=== PATIENT | female | born 1995 | race Caucasian/White ===

== ENCOUNTER 2016-12-01 17:18 | Observation (INO) | payer OTHER ==
[~2016-12-01] VITALS: Ht 152.4 cm; Wt 52.0 kg
[2016-12-01] MEDS ORDERED: LACTATED RINGER'S 1000ML 500 ML IV ONE (17:27)
[2016-12-01] MEDS ORDERED: LACTATED RINGER'S 1000ML 1,000 ML IV SCH (17:27)
[2016-12-01] MEDS ORDERED: ONDANSETRON INJ 2 MG/ML 2 ML VIAL IV PRN (17:30)
[2016-12-01] MEDS ORDERED: ACETAMINOPHEN 325 MG TAB PO PRN (17:30)
[2016-12-01] MEDS ORDERED: ONDANSETRON 4 MG TAB PO PRN (17:30)
[2016-12-01 18:20] LABS: BASO % 0.2 %; BASO ABS # 0.02 K/uL (0-0.2); COMPLETE YES; EOS % 1.8 %; HEMATOCRIT 31.1 % (37-47); IG% 0.5 %; LYMPH ABS # 1.63 K/uL (1.2-3.4); MEAN CELL VOLUME 93.1 fL (80-100); MEAN CORPUSCULAR HGB CONC 34.4 g/dl (32-36); MEAN PLATELET VOLUME 11.1 fL (7.4-10.4); MONO % 8.8 %; NEUT % 73.7 %; PLATELET COUNT 279 K/uL (130-400); RED BLOOD COUNT 3.34 M/uL (4.2-5.4); WHITE BLOOD COUNT 10.85 K/uL (4.8-10.8)
[2016-12-01 18:29] VITALS: Ht 152.4 cm; Wt 52.0 kg
[2016-12-01] MEDS ORDERED: PRENTAB26 PO (18:33)
[2016-12-01 18:41] LABS: URINE APPEARANCE CLEAR (CLEAR); URINE BILIRUBIN NEG (NEG); URINE COLOR YELLOW; URINE EPITHELIAL CELL AUTO >30 /lpf (0-5); URINE NITRITE NEG (NEG); URINE PH >= 9.0 (4.5-7.5); URINE SPECIFIC GRAVITY 1.015 (1.000-1.030); UROBILINOGEN NEG (NEG); ZZUR CULT IF INDIC CLEAN CATCH YES
[2016-12-01 18:43] LABS: ALT/SGPT 13 U/L (12-78); AST/SGOT 12 U/L (15-37); BLOOD UREA NITROGEN 6 mg/dl (7-18); BUN/CREATININE RATIO 12.3 (10-20); CALCIUM 8.3 mg/dl (8.5-10.1); CARBON DIOXIDE 24 mmol/L (21-32); CHLORIDE 110 mmol/L (98-107); CREATININE 0.49 mg/dl (0.60-1.20); GLUCOSE 67 mg/dl (70-99); POTASSIUM 3.9 mmol/L (3.5-5.1); SODIUM 138 mmol/L (136-145)
[2016-12-01 18:45] LABS: ALB/GLOB RATIO 0.7 (0.9-2); ALKALINE PHOSPHATASE 73 U/L (45-117)
[2016-12-01 18:45] LABS: MANUAL MICROSCOPIC REQUIRED? NO; REVIEW REQ? YES
[2016-12-01 18:46] LABS: SULFASALICYLIC ACID POS (NEG)
[2016-12-01] MEDS ORDERED: TERBUTALINE SULFATE 1 MG/ML VIAL SQ ONE (19:30)
[2016-12-01] MEDS ORDERED: TERBUTALINE SULFATE 1 MG/ML VIAL ONE (19:31)
--- NOTE | 2016-12-01 21:09 | Discharge Instructions ---
Discharge Instructions Date of Service Dec 01, 2016. Admission Reason for Admission: R/O Pre Term Labor Discharge Discharge Diagnosis / Problem: Dehydration Discharge Goals Goal(s): Continuing OB care Activity Recommendations Activity Limitations: as noted below ACTIVITY RECOMMENDATIONS: See Labor Sheet. SPECIAL CARE INSTRUCTIONS: Call Doctor if: * Regular contractions every 5 minutes or greater than 4 contractions in one hour. * Bleeding * Water breaks or is leaking * Decreased movement * Fever >100.4 degrees F * Pain not relieved by routine measures or pain medication ordered. FOLLOW UP VISIT: Return to Labor and Delivery on for /call for appointment time . Follow-up Visit with: When: . Current Hospital Diet Patient's current hospital diet: Discharge Diet Recommended Diet: Regular Diet Pending Studies Studies pending at discharge: yes (Urine cx) List of pending studies: urine culture Work Instructions Return To Work: 1 day (off today 12/01/16) Medical Emergencies . Who to Call and When: Medical Emergencies: If at any time you feel your situation is an emergency, please call 911 immediately. . Non-Emergent Contact Non-Emergency issues call your: Surgeon Call Non-Emergent contact if: temperature is above 100.5, your pain is not controlled, your pain is worsening . . "Provider Documentation" section prepared by Alex Rossi. . VTE Core Measure Inpt VTE Proph given/why not?: Treatment not indicated
== END 2016-12-01 21:24 | disposition home or self-care (01) ==
LOC: C.OPB 17:18 → C.LD 17:19 → C.OPB 21:22 → C.LD 21:24
PROVIDERS: ADMIT Obstetrics & Gynecology; ATTEND Obstetrics & Gynecology
DX: O99.342 Other mental disorders complicating pregnancy, second trimester (principal); E86.0 Dehydration; O26.892 Other specified pregnancy related conditions, second trimester; O98.512 Other viral diseases complicating pregnancy, second trimester; B00.9 Herpesviral infection, unspecified; F41.1 Generalized anxiety disorder; O99.89 Other specified diseases and conditions complicating pregnancy, childbirth and the puerperium; I73.00 Raynaud's syndrome without gangrene; Z3A.27 27 weeks gestation of pregnancy

== ENCOUNTER 2017-01-22 16:30 | Outpatient (CLI) | payer OTHER ==
[~2017-01-22 16:30] MED LIST: PRENTAB26 PO
[2017-01-22] MEDS ORDERED: ONDA4TAB65 PO (18:13)
--- NOTE | 2017-01-22 18:14 | Discharge Instructions ---
Discharge Instructions Date of Service Jan 22, 2017. Admission Reason for Admission: Pre Term Labor Check Discharge Discharge Diagnosis / Problem: SAME Discharge Goals Goal(s): Continuing OB care Activity Recommendations Activity Limitations: as noted below ACTIVITY RECOMMENDATIONS: See Labor Sheet. SPECIAL CARE INSTRUCTIONS: Call Doctor if: * Regular contractions every 5 minutes or greater than contractions in one hour. * Bleeding * Water breaks or is leaking * Decreased movement * Fever >100.4 degrees F * Pain not relieved by routine measures or pain medication ordered. FOLLOW UP VISIT: Return to Labor and Delivery on for /call for appointment time . Follow-up Visit with: When: . Current Hospital Diet Patient's current hospital diet: Discharge Diet Recommended Diet: Regular Diet Pending Studies Studies pending at discharge: no Medical Emergencies . Who to Call and When: Medical Emergencies: If at any time you feel your situation is an emergency, please call 911 immediately. . Non-Emergent Contact Non-Emergency issues call your: Specialist . . "Provider Documentation" section prepared by Jd Young. . VTE Core Measure Inpt VTE Proph given/why not?: SCD's
--- NOTE | 2017-01-22 18:37 | Progress Note ---
Progress Note Date of Service Jan 22, 2017. Progress Note Pt sent from office for PTL Pt was seen in office today for RPNC She had Placed on monitor in the office and was found to be having ctx . VE in office was closed she was sento L&d for eval. On arrival to L&D, she has minimal ctx, Ve ; unchanged, CAT 1 strip. Pulse is ni the 100's and si attributed to her anemia she denies any palpitations, fatigue or SOB Pt not taking her iron tabs because of Nausea Rx fr Zofran given and pt encouraged to take her iron tabs d/c home with instructions
== END 2017-01-22 18:35 | disposition home or self-care (01) ==
LOC: C.OPB 16:30 → C.LD 16:31 → C.OPB 18:35
PROVIDERS: ATTEND Obstetrics & Gynecology
DX: Z34.00 Encounter for supervision of normal first pregnancy, unspecified trimester (principal)

== ENCOUNTER 2017-01-26 17:50 | Outpatient (CLI) | payer OTHER ==
[~2017-01-26] VITALS: Ht 152.4 cm; Wt 56.7 kg
[~2017-01-26 17:50] MED LIST changes: +ONDA4TAB65 PO
[2017-01-26] MEDS ORDERED: LACTATED RINGER'S 1000ML 1,000 ML IV SCH ×2 (18:38→21:20)
[2017-01-26] MEDS ORDERED: LACTATED RINGER'S 1000ML 500 ML IV ONE (18:38)
[2017-01-26 18:52] LABS: URINE APPEARANCE CLEAR (CLEAR); URINE BILIRUBIN NEG (NEG); URINE COLOR YELLOW; URINE EPITHELIAL CELL AUTO >30 /lpf (0-5); URINE NITRITE NEG (NEG); URINE PH 6.5 (4.5-7.5); URINE SPECIFIC GRAVITY 1.013 (1.000-1.030); UROBILINOGEN NEG (NEG); ZZUR CULT IF INDIC CLEAN CATCH YES
--- NOTE | 2017-01-26 18:54 | Progress Note ---
Progress Note Date of Service Jan 26, 2017. Progress Note 21 F P0000 at 35 weeks admitted with abdominal cramping and diarrhea x3 today. Was here on Sunday with uterine cramping and not dilated at that time. Abdomen is soft and non-tender. Patient appears pale. History of anemia. Denies SOB, dyspnea or syncope. Cervix is long, closed and thick with vertex high. Will get CBC, UA and start IV fluid bolus. FHT Cat 1
[2017-01-26 19:03] LABS: MANUAL MICROSCOPIC REQUIRED? NO; REVIEW REQ? YES
[2017-01-26 19:24] LABS: MEAN CELL VOLUME 88.2 fL (80-100); MEAN CORPUSCULAR HEMOGLOBIN 28.2 pg (25-34); MEAN PLATELET VOLUME 11.7 fL (7.4-10.4); PLATELET COUNT 319 K/uL (130-400); WHITE BLOOD COUNT 14.55 K/uL (4.8-10.8)
[2017-01-26 19:42] LABS: COMPLETE YES; EOSINOPHIL % 1.7 %; LYMPH ABS # 2.02 K/uL (1.2-3.4); LYMPHOCYTE % 13.9 %; MYELOCYTE % 0.9 %; NEUTROPHILS % 79.2 %
[2017-01-26] MEDS ORDERED: LACTATED RINGER'S 1000ML 1,000 ML IV ONE (20:22)
[2017-01-26] MEDS ORDERED: FERR1TAB39 OR (21:04)
[2017-01-26 21:05] VITALS: Ht 152.4 cm; Wt 56.7 kg
--- NOTE | 2017-01-26 21:28 | Progress Note ---
Progress Note Date of Service Jan 26, 2017. Progress Note Last 24 Hours Test 01/26/17 18:10 01/26/17 19:03 Urine Color YELLOW Urine Appearance CLEAR Urine pH 6.5 Urine Specific [place] 1.013 Urine Protein NEG Urine Glucose (UA) NEG Urine Ketones NEG Urine Occult Blood NEG Urine Nitrite NEG Urine Bilirubin NEG Urine Urobilinogen NEG Urine Leukocyte Esterase SMALL Urine WBC (Auto) 10-30 /hpf Urine RBC (Auto) 0-4 /hpf Urine Hyaline Casts (Auto) 1-5 /lpf Urine Epithelial Cells (Auto) >30 /lpf Urine Bacteria (Auto) 1+ Urine Renal Epithelial Cells 5-10 /lpf White Blood Count 14.55 K/uL Red Blood Count 3.40 M/uL Hemoglobin 9.6 g/dL Hematocrit 30.0 % Mean Corpuscular Volume 88.2 fL Mean Corpuscular Hemoglobin 28.2 pg Mean Corpuscular Hemoglobin Concent 32.0 g/dl Platelet Count 319 K/uL Mean Platelet Volume 11.7 fL RDW Standard Deviation 42.8 fL RDW Coefficient of Variation 13.5 % Neutrophils % (Manual) 79.2 % Lymphocytes % (Manual) 13.9 % Monocytes % (Manual) 4.3 % Eosinophils % (Manual) 1.7 % Myelocytes % 0.9 % Neutrophils # (Manual) 11.52 K/uL Total Absolute Neutrophils 11.52 K/uL Lymphocytes # (Manual) 2.02 K/uL Total Absolute Lymphocytes 2.02 K/uL Monocytes # (Manual) 0.63 K/uL Eosinophils # (Manual) 0.25 K/uL Myelocytes # 0.13 K/uL Red Blood Cell Morphology Unremarkable Test 01/26/17 18:10 01/26/17 19:03 Urine Color YELLOW Urine Appearance CLEAR Urine pH 6.5 Urine Specific [place] 1.013 Urine Protein NEG Urine Glucose (UA) NEG Urine Ketones NEG Urine Occult Blood NEG Urine Nitrite NEG Urine Bilirubin NEG Urine Urobilinogen NEG Urine Leukocyte Esterase SMALL Urine WBC (Auto) 10-30 Urine RBC (Auto) 0-4 Urine Hyaline Casts (Auto) 1-5 Urine Epithelial Cells (Auto) >30 Urine Bacteria (Auto) 1+ Urine Renal Epithelial Cells 5-10 White Blood Count 14.55 Red Blood Count 3.40 Hemoglobin 9.6 Hematocrit 30.0 Mean Corpuscular Volume 88.2 Mean Corpuscular Hemoglobin 28.2 Mean Corpuscular Hemoglobin Concent 32.0 Platelet Count 319 Mean Platelet Volume 11.7 RDW Standard Deviation 42.8 RDW Coefficient of Variation 13.5 Neutrophils % (Manual) 79.2 Lymphocytes % (Manual) 13.9 Monocytes % (Manual) 4.3 Eosinophils % (Manual) 1.7 Myelocytes % 0.9 Neutrophils # (Manual) 11.52 Total Absolute Neutrophils 11.52 Lymphocytes # (Manual) 2.02 Total Absolute Lymphocytes 2.02 Monocytes # (Manual) 0.63 Eosinophils # (Manual) 0.25 Myelocytes # 0.13 Red Blood Cell Morphology Unremarkable Feeling better after eating. Color improved. Will d/c home encouraged to continue hydrating.
== END 2017-01-26 21:43 | disposition home or self-care (01) ==
LOC: C.LD 17:50 → C.OPB 17:50
PROVIDERS: ATTEND Obstetrics & Gynecology
DX: O99.89 Other specified diseases and conditions complicating pregnancy, childbirth and the puerperium (principal); R10.9 Unspecified abdominal pain; R19.7 Diarrhea, unspecified; Z3A.35 35 weeks gestation of pregnancy

== ENCOUNTER 2017-02-27 05:05 | Outpatient (CLI) | payer OTHER ==
[~2017-02-27] VITALS: Ht 152.4 cm; Wt 59.4 kg
[~2017-02-27 05:05] MED LIST changes: +FERR1TAB39 OR; -ONDA4TAB65 PO
[2017-02-27] MEDS ORDERED: ACYC-223 PO (05:35)
[2017-02-27 05:36] VITALS: Ht 152.4 cm; Wt 59.4 kg
[2017-02-27 09:57] LABS: HEMATOCRIT 37.4 % (37-47); MEAN CORPUSCULAR HEMOGLOBIN 29.9 pg (25-34); MEAN PLATELET VOLUME 12.4 fL (7.4-10.4); PLATELET COUNT 248 K/uL (130-400); RED BLOOD COUNT 4.02 M/uL (4.2-5.4); WHITE BLOOD COUNT 13.18 K/uL (4.8-10.8)
[2017-02-27 10:09] LABS: MEAN CORPUSCULAR HGB CONC 32.1 g/dl (32-36)
[2017-02-27 10:21] LABS: ALB/GLOB RATIO 0.7 (0.9-2); BUN/CREATININE RATIO 14.7 (10-20); CALCIUM 9.2 mg/dl (8.5-10.1); CREATININE 0.6 mg/dl (0.60-1.20); POTASSIUM 3.7 mmol/L (3.5-5.1)
--- NOTE | 2017-02-27 10:35 | Progress Note ---
Progress Note Date of Service Feb 27, 2017. Progress Note Pt seen and evaluated for labor check cervical exam is unchanged. some elevated Bp's were recorderded during her observation Pt denies headache, SOB, visual changes or RUQ pain PIH labs were ordered and are all nml offered admission and labor augmentation pt declined and wants to go home Here with her mother d/c home with instructions F/u in office for Bp check
--- NOTE | 2017-02-27 10:37 | Discharge Instructions ---
Discharge Instructions Date of Service Feb 27, 2017. Admission Reason for Admission: Labor Check Discharge Discharge Diagnosis / Problem: labor check Discharge Goals Goal(s): Continuing OB care Activity Recommendations Activity Limitations: as noted below SPECIAL CARE INSTRUCTIONS: Call Doctor if: * Regular contractions every 5 minutes or greater than contractions in one hour. * Bleeding * Water breaks or is leaking * Decreased movement * Fever >100.4 degrees F * Pain not relieved by routine measures or pain medication ordered. FOLLOW UP VISIT: Return to Labor and Delivery on for /call for appointment time . Follow-up Visit with: When: . Current Hospital Diet Patient's current hospital diet: Discharge Diet Recommended Diet: Regular Diet Pending Studies Studies pending at discharge: no Medical Emergencies . Who to Call and When: Medical Emergencies: If at any time you feel your situation is an emergency, please call 911 immediately. . Non-Emergent Contact Non-Emergency issues call your: Specialist . . "Provider Documentation" section prepared by Jd Young. . VTE Core Measure Inpt VTE Proph given/why not?: Treatment not indicated
== END 2017-02-27 10:55 | disposition home or self-care (01) ==
LOC: C.LD 05:05 → C.OPB 05:05
PROVIDERS: ATTEND Obstetrics & Gynecology
DX: Z34.00 Encounter for supervision of normal first pregnancy, unspecified trimester (principal)

== ENCOUNTER 2017-03-08 07:46 | Inpatient (IN) | payer OTHER ==
[~2017-03-08] VITALS: Ht 154.9 cm; Wt 60.5 kg
[~2017-03-08 07:46] MED LIST changes: +ACYC-223 PO
[2017-03-08] MEDS ORDERED: LACTATED RINGER'S 1000ML 1,000 ML IV PRN (09:01)
[2017-03-08] MEDS ORDERED: LACTATED RINGER'S 1000ML 500 ML IV PRN ×2 (09:03→21:59)
[2017-03-08 09:19] VITALS: Ht 154.9 cm; Wt 60.5 kg
--- NOTE | 2017-03-08 09:19 | HISTORY & PHYSICAL EXAMINATION ---
DATE OF ADMISSION: 03/08/2017 HISTORY OF PRESENT ILLNESS: The patient is a 21-year-old G1, P0, due date 03/02/2017 making that 40 weeks and 6 days today. She is here for labor induction for postdates. has been unremarkable. On arrival at labor and delivery today, she has no shortness of breath, no chills, no fever. heart rate is category 1. Pelvic exam shows she is 3-4 cm, 90% effaced and -2 station. Bedside ultrasound shows cephalic presentation. course has been unremarkable. LABS: Blood type A positive, antibody negative, rubella immune, GBS is negative. The patient has history of herpes simplex. She has no lesions in the vulva or perineum today. She has been on suppressive therapy since 36 weeks. PAST MEDICAL HISTORY: 1. History of genital herpes. 2. History of depression. 3. History of anorexia. 4. History of seizure disorder. 5. History of allergic rhinitis. 6. History of blocked lacrimal duct. 7. History of migraines. PAST SURGICAL HISTORY: Unremarkable. SOCIAL HISTORY: The patient denies tobacco, drug or alcohol use. FAMILY HISTORY: Noncontributory. The patient was adopted. PHYSICAL EXAMINATION: GENERAL: Well-developed, well-nourished white female in no acute distress. HEART: S1, S2, regular rhythm and rate. LUNGS: Clear to auscultation bilaterally. ABDOMEN: Gravid. Bedside ultrasound shows cephalic presentation. PELVIC: 3 cm, 80-90% effaced. Bedside ultrasound shows cephalic presentation. EXTREMITIES: No cyanosis, clubbing or edema. ASSESSMENT AND PLAN: A 21-year-old G1, P0 at 40 and 6 weeks, here for induction for postdates. Plan is to admit patient and anticipate vaginal delivery.
[2017-03-08] MEDS ORDERED: OXYTOCIN 30 UNITS/500ML NSS IV PRN (10:00)
[2017-03-08 10:06] LABS: HEMATOCRIT 36.5 % (37-47); MEAN CELL VOLUME 91.5 fL (80-100); MEAN CORPUSCULAR HEMOGLOBIN 29.6 pg (25-34); MEAN CORPUSCULAR HGB CONC 32.3 g/dl (32-36); MEAN PLATELET VOLUME 12.8 fL (7.4-10.4); PLATELET COUNT 296 K/uL (130-400); RED BLOOD COUNT 3.99 M/uL (4.2-5.4); WHITE BLOOD COUNT 11.27 K/uL (4.8-10.8)
[2017-03-08] MEDS: LACTATED RINGER'S 1000ML 1,000 ML IV SCH ×2 (10:17→20:22)
[2017-03-08 10:28] LABS: BUN/CREATININE RATIO 12.5 (10-20); CREATININE 0.6 mg/dl (0.60-1.20); POTASSIUM 3.2 mmol/L (3.5-5.1)
[2017-03-08 10:31] LABS: ALB/GLOB RATIO 0.7 (0.9-2)
[2017-03-08] MEDS ORDERED: BUTORPHANOL TARTRATE 1 MG/ML VIAL IV PRN (20:30)
[2017-03-08] MEDS ORDERED: EpHEDrine SULFATE INJ 50 MG/ML AMP ONE (21:37)
[2017-03-08] MEDS ORDERED: FENTANYL 2MCG/ML ROPIV 1.25MG/ML 100ML BAG EPI ONE (21:37)
[2017-03-08] MEDS ORDERED: BUPIVACAINE 0.25% 30 ML VIAL ONE (21:37)
[2017-03-08] MEDS ORDERED: FENTANYL CITRATE INJ 50 MCG/1 ML 2 ML VIAL ONE (21:38)
[2017-03-08] MEDS ORDERED: NALOXONE HCL INJ 1 MG in SODIUM CHLORIDE 0.9% 1000ML 1,000 ML IV PRN (21:59)
[2017-03-08] MEDS ORDERED: NALBUPHINE HCL INJ 10 MG/ML AMP IV PRN (22:00)
[2017-03-08] MEDS ORDERED: NALOXONE HCL INJ 0.4 MG/1 ML VIAL/CARP IV PRN (22:00)
[2017-03-08] MEDS ORDERED: EpHEDrine SULFATE INJ 50 MG/ML AMP IV PRN (22:00)
[2017-03-08] MEDS ORDERED: DiphenhydrAMINE HCL 50 MG/ML VIAL IV PRN (22:00)
[2017-03-09] MEDS: LACTATED RINGER'S 1000ML 1,000 ML IV SCH ×2 (00:56→04:47)
[2017-03-09 06:53] LABS: BASO % 0.2 %; BASO ABS # 0.03 K/uL (0-0.2); COMPLETE YES; EOS % 0.2 %; HEMATOCRIT 34.1 % (37-47); IG% 0.3 %; LYMPH % 8.6 %; MEAN CELL VOLUME 92.7 fL (80-100); MEAN CORPUSCULAR HEMOGLOBIN 29.9 pg (25-34); MEAN CORPUSCULAR HGB CONC 32.3 g/dl (32-36); MEAN PLATELET VOLUME 12.5 fL (7.4-10.4); MONO % 8.2 %; NEUT % 82.5 %; PLATELET COUNT 243 K/uL (130-400); RED BLOOD COUNT 3.68 M/uL (4.2-5.4); WHITE BLOOD COUNT 19.88 K/uL (4.8-10.8)
[2017-03-09] MEDS: FENTANYL 2MCG/ML ROPIV 1.25MG/ML 100ML BAG EPI PRN ×3 (07:02→13:42)
[2017-03-09] MEDS: AMPICILLIN IV 2,000 MG in SODIUM CHLOR 0.9% AD-VAN 100ML 100 ML IV SCH ×3 (07:26→22:21)
[2017-03-09] MEDS ORDERED: GENTAMICIN INJ 80 MG in DEXTROSE 5% 100ML 100 ML IV SCH (07:30)
[2017-03-09] MEDS ORDERED: ACETAMINOPHEN 500 MG TAB PO STA (07:52)
[2017-03-09] MEDS ORDERED: ONDANSETRON INJ 2 MG/ML 2 ML VIAL IV PRN (09:00)
[2017-03-09] MEDS ORDERED: NURSING VERBAL MED ORDER ONE ×2 (09:00→21:45)
[2017-03-09] MEDS ORDERED: GENTAMICIN CONSULT ACTIVE PRN (12:00)
--- NOTE | 2017-03-09 12:17 | Pharmacy Progress Note ---
Pharmacy Abx Initial Consult Date of Service Mar 09, 2017. Pharmacy Dosing Scope Date of Consult: 03/09/17 Consultation requested by: Dr. Carbone Pharmacy is consulted to initiate Gentamicin IV dosing therapy for leukocytosis / (not UTI) infection / active labor, order appropriate labs and adjust drug dose/frequency. Subjective The patient is a 21 year old female admitted on Mar 08, 2017 at 07:46. Objective Height (Feet): 5 Height (Inches): 1.00 Weight (Kilograms): 60.500 Lab Results (24Hrs) Laboratory Tests (24 Hours) Test 03/09/17 06:33 White Blood Count 19.88 K/uL (4.8-10.8) H Red Blood Count 3.68 M/uL (4.2-5.4) L Hemoglobin 11.0 g/dL (12.0-16.0) L Hematocrit 34.1 % (37-47) L Mean Corpuscular Volume 92.7 fL (80-100) Mean Corpuscular Hemoglobin 29.9 pg (25-34) Mean Corpuscular Hemoglobin Concent 32.3 g/dl (32-36) Platelet Count 243 K/uL (130-400) Mean Platelet Volume 12.5 fL (7.4-10.4) H Neutrophils (%) (Auto) 82.5 % Lymphocytes (%) (Auto) 8.6 % Monocytes (%) (Auto) 8.2 % Eosinophils (%) (Auto) 0.2 % Basophils (%) (Auto) 0.2 % Neutrophils # (Auto) 16.43 K/uL (1.4-6.5) H Lymphocytes # (Auto) 1.70 K/uL (1.2-3.4) Monocytes # (Auto) 1.63 K/uL (0.11-0.59) H Eosinophils # (Auto) 0.03 K/uL (0-0.5) Basophils # (Auto) 0.03 K/uL (0-0.2) Assessment & Plan Assessment 21 year old female * active labor (due date 03/02/17 -- being induced for gestation wk 40 day 6) * leukocytosis Plan Pharmacy has been consulted for treatment of (not UTI) infection Gentamicin * altered pharmacokinetics in the setting of /less than six weeks post- * Dose: 80 mg (1.7 mg/kg ideal body weight) IV every 8 hours * Goal trough level for infection : less than 2 mcg/mL * Goal peak level for infection : 6 to 8 mcg/mL * Peak and trough level ordered for 03/10/17 around the 0000 dose. Pharmacy will continue to follow and will adjust dose/frequency as necessary. Thank you.
[2017-03-09] MEDS: GENTAMICIN INJ 80 MG in DEXTROSE 5% 100ML 100 ML IV SCH ×2 (15:52→23:02)
[2017-03-09] MEDS ORDERED: LACTATED RINGER'S 1000ML 1,000 ML IV SCH ×3 (17:52→20:30)
[2017-03-09] MEDS ORDERED: CITRIC ACID/SODIUM CITRATE 15 ML UDC ONE (18:00)
[2017-03-09] MEDS ORDERED: CEFAZOLIN IV 2,000 MG in SYRINGE 0 ML IV SCH (18:15)
[2017-03-09] MEDS ORDERED: FENTANYL CITRATE INJ 50 MCG/1 ML 2 ML VIAL ONE (18:41)
[2017-03-09] MEDS ORDERED: MORPHINE SULFATE 1MG/1ML 30ML VIAL IV ONE (18:42)
[2017-03-09] MEDS ORDERED: OXYTOCIN INJ 10 UNITS/ML VIAL ONE (18:44)
[2017-03-09] MEDS ORDERED: METHYLERGONOVINE MALEATE 0.2 MG/ML AMP ONE (19:10)
[2017-03-09] MEDS ORDERED: PHENYLEPHRINE 100MCG/ML 5ML SYR ONE (19:10)
[2017-03-09] MEDS ORDERED: ONDANSETRON INJ 2 MG/ML 2 ML VIAL ONE ×2 (19:11→19:32)
[2017-03-09] MEDS ORDERED: MISOPROSTOL 200 MCG TAB ONE (19:14)
[2017-03-09] MEDS ORDERED: KETOROLAC TROMETHAMINE 30 MG/ML VIAL ONE (19:32)
[2017-03-09] MEDS ORDERED: PROMETHAZINE HCL INJ 25 MG/ML 1 ML VIAL ONE (19:32)
[2017-03-09] MEDS ORDERED: MAGNESIUM HYDROXIDE SUSP 30 ML UDC PO PRN (20:00)
[2017-03-09] MEDS ORDERED: SENNA 8.6 MG TAB PO PRN (20:00)
[2017-03-09] MEDS ORDERED: LANOLIN OINT EXT PRN ×2 (20:00)
[2017-03-09] MEDS ORDERED: SUPERCREAM 0.870 % 15GM JAR EXT PRN (20:00)
[2017-03-09] MEDS ORDERED: BENZOCAINE 20% AER SPR 82.5 GM CAN EXT PRN (20:00)
[2017-03-09] MEDS ORDERED: HYDROCORTISONE ACETATE 25 MG SUPP PR PRN (20:00)
[2017-03-09] MEDS ORDERED: DC PCA PRN (20:00)
[2017-03-09] MEDS ORDERED: MoRPHine SULFATE 2 MG/ML CARP IV PRN (20:15)
[2017-03-09] MEDS ORDERED: MoRPHine SULFATE PF 1 MG/ML 10 ML AMP/VIAL EPI PRN (20:15)
[2017-03-09] MEDS ORDERED: NO NARCOTICS OR SEDATIVES SCH (20:15)
[2017-03-09] MEDS ORDERED: MEPERIDINE HCL 25 MG/ML CARP IV PRN (20:15)
[2017-03-09] MEDS ORDERED: DiphenhydrAMINE HCL 50 MG/ML VIAL IV PRN (20:15)
[2017-03-09] MEDS ORDERED: CONTINUE MEDICATION ONE (20:15)
[2017-03-09] MEDS ORDERED: KETOROLAC TROMETHAMINE 30 MG/ML VIAL IV. PRN (20:15)
[2017-03-09] MEDS ORDERED: CARBOPROST TROMETHAMINE 250 MCG/ML AMP ONE (20:46)
--- NOTE | 2017-03-09 20:54 | Anesthesia Procedure Note ---
Anesthesia Epidural Removal Nt Date & Time Mar 09, 2017 at 20:54 Vital Signs Pain Intensity: 1.0 Notes Mental Status: alert / awake / arousable, participated in evaluation Nausea / Vomiting: adequately controlled Pain: adequately controlled Airway Patency, RR, SpO2: stable & adequate BP & HR: stable & adequate Hydration State: stable & adequate Neuraxial Anesthesia: was administered Anesthetic Complications: no major complications apparent, pt satisfied with anesthetic care Epidural: removed without complications, with tip intact
[2017-03-09] MEDS: OXYTOCIN INJ 20 UNITS in LACTATED RINGER'S 1000ML 1,000 ML IV SCH (21:03)
[2017-03-09 21:10] VITALS: BP 124/84; PULSE 132; TEMP 39.4; O2SAT 98
[2017-03-09] MEDS: SIMETHICONE 80 MG CHEW PO SCH (21:10)
[2017-03-09] MEDS: DOCUSATE SODIUM 100 MG CAP PO SCH (21:20)
[2017-03-09 21:40] VITALS: BP 124/84; PULSE 129; TEMP 37.4; O2SAT 97
[2017-03-09 22:10] VITALS: BP 119/81; PULSE 120; TEMP 37.8; O2SAT 94
--- NOTE | 2017-03-09 22:59 | Anesthesiology Progress Note ---
Anesthesia Post Op Note Date & Time Mar 09, 2017 at 22:59 Vital Signs Pain Intensity: 0.0 Vital Signs Past 12 Hours Date Time Temp Pulse Resp B/P (MAP) Pulse Ox O2 Delivery O2 Flow Rate FiO2 03/09/17 21:10 39.4 132 20 124/84 (97) 98 Room Air 03/09/17 21:10 98 Room Air Notes Mental Status: alert / awake / arousable, participated in evaluation Pt Amnestic to Procedure: Yes Nausea / Vomiting: adequately controlled Pain: adequately controlled Airway Patency, RR, SpO2: stable & adequate BP & HR: stable & adequate Hydration State: stable & adequate Anesthetic Complications: no major complications apparent
[2017-03-09 23:10] VITALS: BP 128/81; PULSE 131; TEMP 38.2; O2SAT 94
[2017-03-09] MEDS ORDERED: GENTAMICIN TROUGH SCH (23:30)
[2017-03-10] VITALS (25 sets, daily range): BP systolic 110–127; BP diastolic 70–87; PULSE 94–137; TEMP 36.4–37.7; O2SAT 22–96
[2017-03-10] MEDS ORDERED: GENT. PEAK 1 EA IV SCH (01:30)
[2017-03-10 03:37] LABS: URINE APPEARANCE CLOUDY (CLEAR); URINE COLOR DK YELLOW; URINE NITRITE NEG (NEG); URINE SPECIFIC GRAVITY 1.028 (1.000-1.030); UROBILINOGEN NEG (NEG); ZZURINE CULT IF INDIC CATH YES
[2017-03-10 03:41] LABS: MANUAL MICROSCOPIC REQUIRED? NO; REVIEW REQ? YES
[2017-03-10 03:52] LABS: URINE BILIRUBIN NEG (NEG)
[2017-03-10 03:54] LABS: URINE PATH CASTS 1-5 WBC CASTS /lpf (0)
[2017-03-10] MEDS: AMPICILLIN IV 2,000 MG in SODIUM CHLOR 0.9% AD-VAN 100ML 100 ML IV SCH ×5 (04:09→23:54)
[2017-03-10] MEDS: OXYTOCIN INJ 20 UNITS in LACTATED RINGER'S 1000ML 1,000 ML IV SCH (05:05)
[2017-03-10 06:35] LABS: HEMATOCRIT 20.5 % (37-47); MEAN CELL VOLUME 90.7 fL (80-100); MEAN CORPUSCULAR HEMOGLOBIN 30.5 pg (25-34); MEAN CORPUSCULAR HGB CONC 33.7 g/dl (32-36); PLATELET COUNT 195 K/uL (130-400); RED BLOOD COUNT 2.26 M/uL (4.2-5.4); WHITE BLOOD COUNT 18.97 K/uL (4.8-10.8)
[2017-03-10 06:51] LABS: CREATININE 1.14 mg/dl (0.60-1.20)
[2017-03-10 07:20] LABS: BASO % 0.1 %; BASO ABS # 0.02 K/uL (0-0.2); COMPLETE YES; EOS % 0.3 %; IG% 0.3 %; LYMPH % 14.4 %; LYMPH ABS # 2.74 K/uL (1.2-3.4); MONO % 12.7 %; NEUT % 72.2 %
--- NOTE | 2017-03-10 08:25 | Progress Note ---
Progress Note Date of Service Mar 10, 2017. Progress Note Called with low H/H s; pt doding well. no complaints. no SOB, chills or malaise O; tachy, low grade fever Lung; CTA bilat. no W/C/R Ht; S1S2 R/R/r ABD; dressing C/D/I Ext. No C/C/E a/p s/p c/sec Day #1 post op blood loss Hemoglobin 6.5 will transfuse 2 units 'discussed with pt Risk of transfusion discussed with pt pt agrees consent discussed and signed
[2017-03-10] MEDS: SIMETHICONE 80 MG CHEW PO SCH ×4 (09:00→20:10)
[2017-03-10] MEDS: PRENATAL VITAMIN TAB PO SCH (09:00)
[2017-03-10] MEDS: FERROUS SULFATE 325 MG TAB PO SCH (09:00)
[2017-03-10] MEDS: DOCUSATE SODIUM 100 MG CAP PO SCH ×2 (09:00→20:10)
--- NOTE | 2017-03-10 09:56 | OB/GYN Progress Note ---
[employer] Progress Note Date of Service: Mar 10, 2017. Patient is seen and examined. She feels well, no complaints. Pain is under control with meds. Not OOB yet Tolerating clear diet with out N&V Flatus + BM neg Bleeding is minimal No fever/ chills/ CP/ SOB/ N&V/ Leg pain Having 1st unit of PRBCC Date Time Temp Pulse Resp B/P (MAP) Pulse Ox O2 Delivery O2 Flow Rate FiO2 03/10/17 08:20 36.9 116 76 111/74 03/10/17 06:10 20 95 03/10/17 05:10 20 93 03/10/17 04:10 20 93 03/10/17 03:30 37.4 132 20 111/70 (84) 94 Room Air 03/10/17 03:10 20 94 03/10/17 02:10 18 94 03/10/17 01:10 20 95 03/10/17 00:10 20 94 03/10/17 00:10 37.7 137 20 124/81 (95) 94 Room Air 03/09/17 23:10 38.2 131 20 128/81 (97) 94 Room Air 03/09/17 23:10 20 94 03/09/17 23:10 Room Air 94 03/09/17 23:10 38.2 131 20 128/81 (97) 94 Room Air 03/09/17 22:10 37.8 120 20 119/81 (94) 94 Room Air 03/09/17 22:10 20 94 03/09/17 21:40 37.4 129 20 124/84 (97) 97 Room Air 03/09/17 21:10 98 Room Air 03/09/17 21:10 39.4 132 20 124/84 (97) 98 Room Air 03/09/17 21:10 20 98 03/09/17 21:10 98 Room Air Last 24 Hours Test 03/09/17 23:16 03/10/17 01:52 03/10/17 06:08 Gentamicin Level Trough 2.10 mcg/ml Random Gentamicin Level 1.60 mcg/ml White Blood Count 18.97 K/uL Red Blood Count 2.26 M/uL Hemoglobin 6.9 g/dL Hematocrit 20.5 % Mean Corpuscular Volume 90.7 fL Mean Corpuscular Hemoglobin 30.5 pg Mean Corpuscular Hemoglobin Concent 33.7 g/dl Platelet Count 195 K/uL Mean Platelet Volume 12.0 fL Neutrophils (%) (Auto) 72.2 % Lymphocytes (%) (Auto) 14.4 % Monocytes (%) (Auto) 12.7 % Eosinophils (%) (Auto) 0.3 % Basophils (%) (Auto) 0.1 % Neutrophils # (Auto) 13.69 K/uL Lymphocytes # (Auto) 2.74 K/uL Monocytes # (Auto) 2.40 K/uL Eosinophils # (Auto) 0.06 K/uL Basophils # (Auto) 0.02 K/uL RDW Standard Deviation 58.3 fL RDW Coefficient of Variation 17.6 % Immature Granulocyte % (Auto) 0.3 % Immature Granulocyte # (Auto) 0.06 K/uL Red Blood Cell Morphology Unremarkable Creatinine 1.14 mg/dl Est Creatinine Clear Calc Drug Dose 64.0 ml/min Estimated GFR () 78.5 Estimated GFR (Non- 67.7 PE: General: Alert, orientedx3, NAD CVS: S1S2 RRR, pulse 110's, O2 sat 98% RA Lungs; CTAB Abd: soft, NT, ND, BS+, fundus firm, below Umbilicus Dressing: Clean, dry, intact Perineum intact, Lochia rubra minimal Ext; NT, no edema AP: 21 yo s/p C Section, pod# 1 On Blood transfusion for anemia, tolerating well with no s/s of reaction VSS Afebrile doing well Continue routine postop care Encourage ambulation this afternoon, PO intake All questions were answered
[2017-03-10] MEDS ORDERED: ONDANSETRON INJ 2 MG/ML 2 ML VIAL IV PRN (12:00)
[2017-03-10] MEDS ORDERED: KETOROLAC TROMETHAMINE 30 MG/ML VIAL IV. PRN (12:00)
[2017-03-10] MEDS ORDERED: DiphenhydrAMINE HCL 50 MG/ML VIAL IV PRN (12:00)
[2017-03-10] MEDS ORDERED: DC INTRASPINAL MORPHINE ONE (12:00)
[2017-03-10] MEDS ORDERED: OXYCODONE/ACETAMINOPHEN 5-325 TAB PO PRN (12:00)
[2017-03-10] MEDS ORDERED: MEPERIDINE HCL 50 MG/ML CARP IV PRN ×2 (12:00)
[2017-03-10] MEDS ORDERED: PROMETHAZINE HCL INJ 25 MG in SODIUM CHLORIDE 0.9% 50ML 50 ML IV PRN (12:00)
[2017-03-10] MEDS ORDERED: ZOLPIDEM TARTRATE 5 MG TAB PO PRN (12:00)
[2017-03-10] MEDS: GENTAMICIN INJ 120 MG in DEXTROSE 5% 100ML 100 ML IV SCH (14:31)
[2017-03-10] MEDS: IBUPROFEN 600 MG TAB PO PRN ×2 (15:58→20:11)
--- NOTE | 2017-03-10 16:22 | Pharmacy Progress Note ---
Pharmacy Abx Dose Progress Nt Date of Service Mar 10, 2017. Pharmacy Dosing Scope The patient is currently receiving the following antimicrobial agents per Pharmacy consult: Gentamicin 80mg IV every 8 hours Objective Height (Feet): 5 Height (Inches): 1.00 Weight (Kilograms): 60.500 Vital Signs (Past 12Hrs) Vital Signs Past 12 Hours Date Time Temp Pulse Resp B/P (MAP) Pulse Ox O2 Delivery O2 Flow Rate FiO2 03/10/17 13:05 36.6 112 18 125/84 03/10/17 12:15 36.9 112 18 118/78 95 03/10/17 12:10 18 95 03/10/17 11:55 37.1 109 18 120/80 93 03/10/17 11:55 37.1 109 18 120/80 (93) 95 Room Air 03/10/17 11:35 36.9 109 18 123/79 03/10/17 11:35 36.9 109 18 123/79 03/10/17 11:18 36.9 111 18 114/78 03/10/17 11:10 18 96 03/10/17 10:10 16 94 03/10/17 09:30 37.0 116 20 116/79 95 03/10/17 09:10 22 96 03/10/17 08:55 36.7 116 18 115/77 03/10/17 08:45 96 Room Air 03/10/17 08:45 36.5 108 18 110/76 (87) 96 Room Air 03/10/17 08:45 36.5 108 18 110/76 03/10/17 08:20 36.9 116 76 111/74 03/10/17 08:10 20 96 03/10/17 07:10 92 22 03/10/17 06:10 20 95 03/10/17 05:10 20 93 03/10/17 04:10 20 93 Lab Results (24Hrs) Item Value Date Time Creatinine 0.60 mg/dl 03/08/17 0933 Est Creatinine Clear Calc Drug Dose 121.7 ml/min 03/08/17 0933 Estimated GFR () 148.9 03/08/17 0933 Estimated GFR (Non- 128.5 03/08/17 0933 Creatinine 1.14 mg/dl # 03/10/17 0608 Est Creatinine Clear Calc Drug Dose 64.0 ml/min 03/10/17 0608 Estimated GFR () 78.5 03/10/17 0608 Estimated GFR (Non- 67.7 03/10/17 0608 Laboratory Tests (24 Hours) Test 03/10/17 06:08 White Blood Count 18.97 K/uL (4.8-10.8) H Red Blood Count 2.26 M/uL (4.2-5.4) L Hemoglobin 6.9 g/dL (12.0-16.0) Hematocrit 20.5 % (37-47) *L Mean Corpuscular Volume 90.7 fL (80-100) Mean Corpuscular Hemoglobin 30.5 pg (25-34) Mean Corpuscular Hemoglobin Concent 33.7 g/dl (32-36) Platelet Count 195 K/uL (130-400) Mean Platelet Volume 12.0 fL (7.4-10.4) H Neutrophils (%) (Auto) 72.2 % Lymphocytes (%) (Auto) 14.4 % Monocytes (%) (Auto) 12.7 % Eosinophils (%) (Auto) 0.3 % Basophils (%) (Auto) 0.1 % Neutrophils # (Auto) 13.69 K/uL (1.4-6.5) H Lymphocytes # (Auto) 2.74 K/uL (1.2-3.4) Monocytes # (Auto) 2.40 K/uL (0.11-0.59) H Eosinophils # (Auto) 0.06 K/uL (0-0.5) Basophils # (Auto) 0.02 K/uL (0-0.2) Micro Results Date/Time Source Procedure Growth Status 03/09/17 23:28 Blood Blood Culture Pending Received 03/09/17 23:27 Blood Blood Culture Pending Received 03/10/17 03:20 Urine,Catheterized Urine Culture Pending Received Assessment & Plan Assessment 21 year old female receiving gentamicin for treatment of for leukocytosis / (not UTI) infection / Day # 2/10 of antimicrobial therapy Patient was started on gentamicin 80mg IV q8hrs with a SCr of 0.6 mg/dl (03/09/17 ). Patient's SCr reported as 1.14 mg/dl (03/10/17). Gentamicin was held with midnight dose secondary to an elevated trough of 2.1 mcg/ml reported at 23:16 (03/09/17). Repeat random levels reported as follows: Item Value Date Time Gentamicin Level Trough 2.10 mcg/ml *H 03/09/17 2316 Random Gentamicin Level 1.60 mcg/ml 03/10/17 0152 Random Gentamicin Level 0.50 mcg/ml 03/10/17 1153 Plan Gentamicin * Restart Gentamicin 120 mg (2 mg/kg) every 12 hours. * trough level ordered for 03/11/17 before the third dose. * Estimated Ke=0.80, t 1/2 = 3.85 hrs and Vd 0.4 L/kg. * altered pharmacokinetics in the setting of less than six weeks post- and patient with changing renal function. Pharmacy will continue to follow and will adjust dose/frequency as necessary. Thank you.
[2017-03-10] MEDS ORDERED: CITRIC ACID/SODIUM CITRATE 15 ML UDC PO ONE (18:15)
[2017-03-10 18:50] LABS: HEMATOCRIT 30.5 % (37-47)
[2017-03-10] MEDS ORDERED: BISACODYL 5 MG TABEC PO ONE (22:00)
[2017-03-11] VITALS: BP 135/87; PULSE 105; TEMP 37; O2SAT 97
[2017-03-11] MEDS: LOPERAMIDE HCL 2 MG CAP PO SCH ×2 (00:09→06:00)
[2017-03-11] MEDS: GENTAMICIN INJ 120 MG in DEXTROSE 5% 100ML 100 ML IV SCH ×2 (02:10→14:10)
[2017-03-11 04:05] VITALS: BP 119/79; PULSE 97; TEMP 36.6; O2SAT 97
[2017-03-11] MEDS: AMPICILLIN IV 2,000 MG in SODIUM CHLOR 0.9% AD-VAN 100ML 100 ML IV SCH ×3 (04:07→16:23)
[2017-03-11] MEDS: IBUPROFEN 600 MG TAB PO PRN ×5 (04:18→21:20)
[2017-03-11] MEDS: OXYCODONE/ACETAMINOPHEN 5-325 TAB PO PRN ×5 (04:19→21:21)
[2017-03-11 07:15] VITALS: BP 109/70; PULSE 92; TEMP 36.3; O2SAT 98
[2017-03-11 07:48] LABS: CREATININE 0.77 mg/dl (0.60-1.20)
[2017-03-11] MEDS: SIMETHICONE 80 MG CHEW PO SCH ×4 (07:52→19:54)
[2017-03-11] MEDS: FERROUS SULFATE 325 MG TAB PO SCH (07:52)
[2017-03-11] MEDS: DOCUSATE SODIUM 100 MG CAP PO SCH ×2 (07:52→19:54)
[2017-03-11] MEDS: PRENATAL VITAMIN TAB PO SCH (07:52)
--- NOTE | 2017-03-11 09:39 | OB/GYN Progress Note ---
DIRECTOR OF RECRUITMENT AND ADMISSIONS Progress Note Date of Service: Mar 11, 2017. Patient is seen and examined. She feels well, no complaints. Pain is under control with oral meds. Ambulating without dizziness Voiding without difficulty Tolerating regular diet with out N&V Flatus + BM +, she had diarrhea yesterday and stopped Bleeding is minimal No fever/ chills/ CP/ SOB/ N&V/ Leg pain Breast feeding without problems Date Time Temp Pulse Resp B/P (MAP) Pulse Ox O2 Delivery O2 Flow Rate FiO2 03/11/17 08:05 Room Air 03/11/17 07:15 36.3 92 16 109/70 (83) 98 Room Air 03/11/17 04:05 36.6 97 16 119/79 (92) 97 Room Air 03/11/17 00:00 37.0 105 18 135/87 (103) 97 Room Air 03/11/17 00:00 97 Room Air 03/10/17 21:00 36.4 94 20 120/80 (93) Room Air 03/10/17 16:15 36.7 116 20 127/87 (100) Room Air 03/10/17 16:15 Room Air 03/10/17 13:05 36.6 112 18 125/84 03/10/17 12:15 36.9 112 18 118/78 95 03/10/17 12:10 18 95 03/10/17 11:55 37.1 109 18 120/80 93 03/10/17 11:55 37.1 109 18 120/80 (93) 95 Room Air 03/10/17 11:35 36.9 109 18 123/79 03/10/17 11:35 36.9 109 18 123/79 03/10/17 11:18 36.9 111 18 114/78 03/10/17 11:10 18 96 03/10/17 10:10 16 94 Test 01/26/17 18:10 01/26/17 19:03 02/27/17 09:44 03/08/17 09:33 Urine Color YELLOW Urine Appearance CLEAR Urine pH 6.5 Urine Specific [place] 1.013 Urine Protein NEG Urine Glucose (UA) NEG Urine Ketones NEG Urine Occult Blood NEG Urine Nitrite NEG Urine Bilirubin NEG Urine Urobilinogen NEG Urine Leukocyte Esterase SMALL H Urine WBC (Auto) 10-30 H Urine RBC (Auto) 0-4 Urine Hyaline Casts (Auto) 1-5 Urine Epithelial Cells (Auto) >30 H Urine Bacteria (Auto) 1+ H Urine Renal Epithelial Cells 5-10 H Neutrophils % (Manual) 79.2 Lymphocytes % (Manual) 13.9 Monocytes % (Manual) 4.3 Eosinophils % (Manual) 1.7 Myelocytes % 0.9 Neutrophils # (Manual) 11.52 H Total Absolute Neutrophils 11.52 H Lymphocytes # (Manual) 2.02 Total Absolute Lymphocytes 2.02 Monocytes # (Manual) 0.63 H Eosinophils # (Manual) 0.25 Myelocytes # 0.13 H Red Blood Cell Morphology Unremarkable Sodium Level 137 139 Potassium Level 3.7 3.2 L Chloride Level 105 107 Carbon Dioxide Level 23 24 Anion Gap 9.0 9.0 Blood Urea Nitrogen 9 8 BUN/Creatinine Ratio 14.7 12.5 Random Glucose 79 109 H Calcium Level 9.2 9.0 Total Bilirubin 0.2 0.1 L Aspartate Amino Transferase (AST) 16 15 Alanine Aminotransferase (ALT) 13 11 L Alkaline Phosphatase 177 H 179 H Lactate Dehydrogenase 185 Total Protein 6.8 6.3 L Albumin 2.8 L 2.6 L Globulin 4.0 3.7 Albumin/Globulin Ratio 0.7 L 0.7 L White Blood Count 11.27 H Red Blood Count 3.99 L Mean Corpuscular Volume 91.5 Mean Corpuscular Hemoglobin 29.6 Mean Corpuscular Hemoglobin Concent 32.3 RDW Standard Deviation 57.6 H RDW Coefficient of Variation 17.1 H Platelet Count 296 Mean Platelet Volume 12.8 H Creatinine 0.60 Est Creatinine Clear Calc Drug Dose 121.7 Estimated GFR () 148.9 Estimated GFR (Non- 128.5 Test 03/09/17 03:20 03/09/17 06:33 03/09/17 23:16 03/10/17 01:52 Urine Color DK YELLOW Urine Appearance CLOUDY Urine pH 5.0 Urine Specific Pix[place] 1.028 Urine Protein 2+ Urine Glucose (UA) NEG Urine Ketones TRACE H Urine Occult Blood 3+ H Urine Nitrite NEG Urine Bilirubin NEG Urine Urobilinogen NEG Urine Leukocyte Esterase MODERATE H Urine WBC (Auto) >30 H Urine RBC (Auto) >30 H Urine Hyaline Casts (Auto) 1-5 Urine Epithelial Cells (Auto) 5-10 H Urine Bacteria (Auto) NEG Urine Pathogenic Casts 1-5 WBC CASTS H Urine Yeast (Auto) White Blood Count 19.88 H Red Blood Count 3.68 L Hemoglobin 11.0 L Hematocrit 34.1 L Mean Corpuscular Volume 92.7 Mean Corpuscular Hemoglobin 29.9 Mean Corpuscular Hemoglobin Concent 32.3 Platelet Count 243 Mean Platelet Volume 12.5 H Neutrophils (%) (Auto) 82.5 Lymphocytes (%) (Auto) 8.6 Monocytes (%) (Auto) 8.2 Eosinophils (%) (Auto) 0.2 Basophils (%) (Auto) 0.2 Neutrophils # (Auto) 16.43 H Lymphocytes # (Auto) 1.70 Monocytes # (Auto) 1.63 H Eosinophils # (Auto) 0.03 Basophils # (Auto) 0.03 RDW Standard Deviation 58.8 H RDW Coefficient of Variation 17.3 H Immature Granulocyte % (Auto) 0.3 Immature Granulocyte # (Auto) 0.06 H Gentamicin Level Trough 2.10 *H Random Gentamicin Level 1.60 Test 03/10/17 06:08 03/10/17 11:53 03/10/17 18:39 03/11/17 06:58 White Blood Count 18.97 H Red Blood Count 2.26 L Hemoglobin 6.9 #*L 10.2 #L 8.9 L Hematocrit 20.5 *L 30.5 L 27.0 L Mean Corpuscular Volume 90.7 Mean Corpuscular Hemoglobin 30.5 Mean Corpuscular Hemoglobin Concent 33.7 Platelet Count 195 Mean Platelet Volume 12.0 H Neutrophils (%) (Auto) 72.2 Lymphocytes (%) (Auto) 14.4 Monocytes (%) (Auto) 12.7 Eosinophils (%) (Auto) 0.3 Basophils (%) (Auto) 0.1 Neutrophils # (Auto) 13.69 H Lymphocytes # (Auto) 2.74 Monocytes # (Auto) 2.40 H Eosinophils # (Auto) 0.06 Basophils # (Auto) 0.02 RDW Standard Deviation 58.3 H RDW Coefficient of Variation 17.6 H Immature Granulocyte % (Auto) 0.3 Immature Granulocyte # (Auto) 0.06 H Red Blood Cell Morphology Unremarkable Creatinine 1.14 # 0.77 # Est Creatinine Clear Calc Drug Dose 64.0 94.8 Estimated GFR () 78.5 126.1 Estimated GFR (Non- 67.7 108.8 Random Gentamicin Level 0.50 PE: General: Alert, orientedx3, NAD CVS: S1S2 RRR Lungs; CTAB Abd: soft, NT, ND, BS+, fundus firm, below Umbilicus Incision: Clean, dry, intact Perineum intact, Lochia rubra minimal Ext; NT, no edema AP: 21 yo s/p C Section, pod# 2 VSS Afebrile doing well Continue routine postop care Encourage ambulation, PO intake All questions were answered D/C home tomorrow
[2017-03-11] MEDS ORDERED: GENTAMICIN TROUGH ONE (13:30)
--- NOTE | 2017-03-11 14:34 | Pharmacy Progress Note ---
Pharmacy Abx Dose Short Note Date of Service Mar 11, 2017. Assessment & Plan Assessment 21 year old female receiving Gentamicin and Ampicillin for treatment of indication. Day # 2/10 of antimicrobial therapy. Plan Gentamicin Trough level 1.2 mcg/ml 03/11/17 @ 13:16 and is therapeutic. Level drawn 45 minutes prior to next dose. Patient to be discharged tomorrow 03/12/17. Spoke with Dr Rossi who will discontinue IV antibiotics tonight to complete 48 hours of therapy. Pharmacy will continue to follow and will adjust dose/frequency as necessary. Thank you.
[2017-03-11 17:00] VITALS: BP 131/86; PULSE 76; TEMP 36.4
[2017-03-11 20:00] VITALS: BP 128/88; PULSE 76; TEMP 36.4
[2017-03-11] MEDS ORDERED: BISACODYL 10 MG SUPP PR PRN (20:00)
[2017-03-11 23:45] VITALS: BP 133/88; PULSE 69; TEMP 36.5; O2SAT 99
[2017-03-12] MEDS: OXYCODONE/ACETAMINOPHEN 5-325 TAB PO PRN ×3 (01:09→10:59)
[2017-03-12] MEDS: IBUPROFEN 600 MG TAB PO PRN ×3 (01:09→10:59)
[2017-03-12 06:40] LABS: BASO % 0.1 %; BASO ABS # 0.01 K/uL (0-0.2); EOS % 3.9 %; HEMATOCRIT 25.2 % (37-47); IG% 0.2 %; LYMPH ABS # 1.93 K/uL (1.2-3.4); MEAN CELL VOLUME 88.1 fL (80-100); MEAN CORPUSCULAR HGB CONC 32.9 g/dl (32-36); MEAN PLATELET VOLUME 12.1 fL (7.4-10.4); MONO % 9.4 %; NEUT % 64.4 %; PLATELET COUNT 207 K/uL (130-400); RED BLOOD COUNT 2.86 M/uL (4.2-5.4); WHITE BLOOD COUNT 8.76 K/uL (4.8-10.8)
[2017-03-12 07:14] LABS: CREATININE 0.63 mg/dl (0.60-1.20)
[2017-03-12 07:19] LABS: COMPLETE YES
--- NOTE | 2017-03-12 07:45 | OPERATIVE REPORT ---
DATE OF OPERATION: 03/09/2017 INDICATION FOR SURGERY: This is a 21-year-old who was admitted for induction of labor for post-dates. The patient progressed to fully dilation, pushed for over 3 hours with no change in dilation, decision was therefore made to perform section. PREOPERATIVE DIAGNOSES: 1. at term. 2. Failure to descend. 3. Cephalic pelvic disproportion. POSTOPERATIVE DIAGNOSES: Same. PROCEDURE: Primary section via Pfannenstiel. SURGEON: Jd Young MD. MUSHROOM FARMER: Sara Turcios MD. FINDINGS: Live male, weight and Apgars in pediatric record. Positive meconium, moderate to thick meconium present. The uterus and adnexa appeared grossly normal. The rest of the abdominal pelvic exam is unremarkable. ANESTHESIA: Epidural. ESTIMATED BLOOD LOSS: 800 mL. IV FLUIDS: 1700 mL. URINE OUTPUT: 400 mL clear urine at end of the procedure. PATHOLOGY: Cord blood, cord gas and placenta. COMPLICATIONS: None. DRAINS: Figueroa catheter. DISPOSITION: Stable to recovery room. DESCRIPTION OF PROCEDURE: The patient was taken to the operating room where she was prepped and draped in normal sterile fashion. A Pfannenstiel incision was made after a time out was called. Incision was carried down to the fascia, incised and extended laterally on both sides. The rectus abdominus muscle was sharply dissected off the fascia. The peritoneum was identified. Abdomen was then tented on either side of the abdomen. An Jeanmarie retractor was used for retraction. The vesicouterine peritoneum was sharply dissected off the lower segment of the uterus. A transverse incision was made in the uterus and extended laterally on both sides using bandage scissors. Infant was delivered. There was meconium. Cord was clamped and cut and handed over to the awaiting pediatric team. 's weight and Apgars in the pediatric record. Placenta was manually removed. Uterus was exteriorized and cleared of all clots and debris. The uterus was closed in 2 layers using Vicryl suture. Copious amount of irrigation was used to irrigate the abdomen. The uterus was returned into the abdominal cavity. Vesicouterine peritoneum was reapproximated using plain suture. The Jeanmarie retractor was removed and the peritoneum closed in a running fashion using plain suture. [id number] sutures were used to approximate the rectus abdominus muscle. Fascia was closed in a running fashion using 0 Vicryl. SubQ space was irrigated and plain suture was used to close the subQ space. Skin was closed with [place]. All instruments were removed from the abdomen and accounted for x2. There was good hemostasis at the end of the procedure and the patient was sent to recovery in stable condition. I attest to the content of the Intraoperative Record and any orders documented therein. Any exception s are noted below.
[2017-03-12 08:00] VITALS: BP 124/82; PULSE 79; TEMP 36.3
[2017-03-12] MEDS: DOCUSATE SODIUM 100 MG CAP PO SCH (08:34)
[2017-03-12] MEDS: PRENATAL VITAMIN TAB PO SCH (08:34)
[2017-03-12] MEDS: SIMETHICONE 80 MG CHEW PO SCH ×2 (08:34→12:44)
[2017-03-12] MEDS: FERROUS SULFATE 325 MG TAB PO SCH (08:34)
[2017-03-12 08:35] VITALS: BP 117/79; PULSE 74; TEMP 36.3
--- NOTE | 2017-03-12 09:48 | Surgery Progress Note ---
Surgery Progress Note Date of Service Mar 12, 2017. Subjective Post OP Day: 3 + feeling well, + ambulating, + pain controlled, + diet (Tolerating Po food and meds), No complaints, No chest pain, No SOB, No bowel movement, No flatus, No using OCCUPATIONAL HEALTH AND SAFETY MANAGER, No nausea, No vomiting Objective Vital Signs: Date Time Temp Pulse Resp B/P (MAP) Pulse Ox O2 Delivery O2 Flow Rate FiO2 03/12/17 08:35 36.3 74 20 117/79 (92) 03/12/17 08:35 Room Air 03/12/17 08:00 36.3 79 18 124/82 (96) Room Air 03/11/17 23:45 36.5 69 18 133/88 (103) 99 Room Air 03/11/17 23:45 99 Room Air 03/11/17 20:00 36.4 76 20 128/88 (101) Room Air 03/11/17 17:00 36.4 76 20 131/86 (101) Room Air 03/11/17 17:00 Room Air General Appearance: WD/WN, no apparent distress Head: normocephalic, atraumatic Neck: supple, no adenopathy, thyroid normal, no JVD, no carotid bruits, trachea midline Respiratory/Chest: chest non-tender, lungs clear, normal breath sounds, no respiratory distress, no accessory muscle use Cardiovascular: regular rate, rhythm, no edema, no gallop, no JVD, no murmur Abdomen: normal bowel sounds, non tender, non distended, soft, no organomegaly , no pulsatile mass Incision(s): clean, dry, intact, no erythema, no drainage Extremities: normal range of motion, non-tender, normal inspection, no pedal edema, no calf tenderness, normal capillary refill, pelvis stable Laboratory Results: Results Past 24 Hours Test 03/11/17 13:16 03/12/17 06:00 Range/Units Gentamicin Level Trough 1.20 0-1 mcg/ml White Blood Count 8.76 4.8-10.8 K/uL Red Blood Count 2.86 4.2-5.4 M/uL Hemoglobin 8.3 12.0-16.0 g/dL Hematocrit 25.2 37-47 % Mean Corpuscular Volume 88.1 80-100 fL Mean Corpuscular Hemoglobin 29.0 25-34 pg Mean Corpuscular Hemoglobin Concent 32.9 32-36 g/dl Platelet Count 207 130-400 K/uL Mean Platelet Volume 12.1 7.4-10.4 fL Neutrophils (%) (Auto) 64.4 % Lymphocytes (%) (Auto) 22.0 % Monocytes (%) (Auto) 9.4 % Eosinophils (%) (Auto) 3.9 % Basophils (%) (Auto) 0.1 % Neutrophils # (Auto) 5.64 1.4-6.5 K/uL Lymphocytes # (Auto) 1.93 1.2-3.4 K/uL Monocytes # (Auto) 0.82 0.11-0.59 K/uL Eosinophils # (Auto) 0.34 0-0.5 K/uL Basophils # (Auto) 0.01 0-0.2 K/uL RDW Standard Deviation 56.1 36.4-46.3 fL RDW Coefficient of Variation 17.5 11.5-14.5 % Immature Granulocyte % (Auto) 0.2 % Immature Granulocyte # (Auto) 0.02 0.00-0.02 K/uL Red Blood Cell Morphology Unremarkable Creatinine 0.63 0.60-1.20 mg/dl Est Creatinine Clear Calc Drug Dose 115.9 ml/min Estimated GFR () 146.5 Estimated GFR (Non- 126.4 Assessment & Plan c/se Day #3 pt doing well s/p post op anemia- received 2units p\PBC H/H stable with vitals d/c home
[2017-03-12] MEDS ORDERED: MTR600X PO (09:50)
[2017-03-12] MEDS ORDERED: FRRS300 PO (09:50)
[2017-03-12] MEDS ORDERED: OXYC-57 PO (09:50)
[2017-03-12] MEDS ORDERED: CLC100 PO (09:50)
--- NOTE | 2017-03-12 09:55 | Discharge Instructions ---
Discharge Instructions Date of Service Mar 12, 2017. Admission Reason for Admission: Induction Discharge Discharge Diagnosis / Problem: postop Discharge Goals Goal(s): Routine recovery after Activity Recommendations Activity Limitations: as noted below ACTIVITY RECOMMENDATIONS: * Gradual return to full activity over the next 2-3 weeks. * No lifting - nothing heavier than baby over the next 2-3 weeks. * Do not engage in vigorous exercise, sexual activity or sports until cleared by your physician. * Do not drive or operate any motorized equipment until cleared by your physician. * You may shower/bathe daily. BREAST CARE: If you are not breast feeding: * Wear a supportive bra 24 hours a day for one to two weeks. * Avoid stimulating your breasts and nipples as much as possible during the first few weeks after delivery. * When taking a shower, have the warm water hit your back, not breasts. * When your breasts feel full, apply ice packs. Usually three to four times a day helps ease the discomfort. * Take a mild pain medication (Tylenol/Motrin) when you are uncomfortable. If breast feeding: * Use breast milk to lubricate nipples. Lansinoh cream may be used for sore nipples. You do not need to remove cream prior to breast feeding. If using a different brand of cream, check the label for directions regarding removal of cream prior to nursing. * Wear a supportive bra. * If having problems with breasts or breast feeding, call a email production consultant or your health care provider. OVER THE COUNTER MEDICATION: * For discomfort or pain, you may use Acetaminophen (Tylenol), Ibuprofen (Advil ), or Naproxen (Aleve) following the package directions. * For constipation you may use Colace following the package directions. SPECIAL CARE INSTRUCTIONS: When you are discharged from the hospital, it is important for you to follow the instructions listed below: * During the first week at home, you should be able to care for yourself and your baby. In addition, the usual light household activities are encouraged. * Limit your activities to the way you feel. Do not try to clean the house or move furniture. Be sensible. * If you actively engage in sports and have done so up until the time of your delivery, you may resume these activities as soon as you feel able. This may take up to one month or even longer. Use good judgment. * Continue to take your vitamins for at least six weeks after the of your baby. * Your diet need not be limited unless you were on a special diet before your delivery. Breast-feeding mothers need around 2500 calories per day and at least 64-80 ounces of fluid per day (8 to 10 glasses). * You should eat foods from the four major food groups. Crash diets or fad diets are to be avoided. Eating lean meats, fresh fruits and vegetables, low-fat dairy products, high fiber foods and a regular exercise program, will help you get back to your pre- weight without putting your health at risk. * Constipation is sometimes a problem after delivery. Take a mild laxative as needed. If breast feeding, Milk of Magnesia is acceptable to use. You may use a suppository or Fleets enema if no episiotomy. * A daily shower or tub bath is suggested. Be sure to thoroughly and gently dry the perineum. * A bloody vaginal discharge will usually continue until around four weeks post . A small amount of bleeding may continue for as long as six weeks. Vaginal discharge changes from the bright red bleeding after delivery to pink then brownish and finally yellowish-pink before becoming white and disappearing. * Bleeding may increase with activity. Your first period may come in 4-8 weeks. If you are breast feeding, your period may be delayed even longer. * [place] (sex) can begin whenever both you and your partner feel comfortable and do not have any form of genital infection. It is recommended that you wait at least six weeks for internal and external healing to occur. If you have questions, please talk to your health care practitioner. A condom should be used to prevent infection and . * Foreplay, gentle intercourse and lubrication is very important the first several times to prevent pain. A water-based lubricant such as K-Y jelly or Astroglide may be used. * Tampons and/or Douching should be avoided until after six weeks check-up. * If you have RH negative blood and your baby is RH positive, you will receive RHOGAM by injection prior to discharge. The nurse will give you a card to keep with you that has the date and place that you received RHOGAM after delivery. * During your care, you had a Rubella screen done to check for the presence of rubella antibodies in your blood. If your test was negative, you will receive a Rubella vaccine prior to discharge. This vaccine may cause a fever, soreness at the injection site and flu-like symptoms. If these symptoms persist, notify your health care practitioner. is not advised for three months after a Rubella vaccine. * Verbalizes understanding of car seat law as reviewed with patient nursing. * Car Seat hand-out given and reviewed with patient by nursing. * Shaken baby information reviewed with patient by nursing. Call you doctor if: * Heavy bleeding (saturating several pads an hour) or passing clots the size of your fist. * A fever >101 degrees F (38.3 degrees C) on two occasions four hours apart and /or chills. * Unusual pain in the pelvic or vaginal areas. Pain should improve each day . * Call the doctor for any increased redness, drainage or swelling around the incision and any pain unrelieved by prescribed pain medication. * Any signs or symptoms of phlebitis (possible blood clots forming in the veins ): leg pain, warm, red or swollen area on leg. * "Baby Blues" lasting longer than two weeks. If you have any questions or concerns, call your health care practitioner at . FOLLOW-UP VISIT: * Incision check (staple removal) in 1 week. Please call doctor's office at to set up appointment. * Please call the office at to schedule a 6 week examination. It is important you keep this appointment. * It is important for you to make arrangements for either yearly or twice yearly check-ups thereafter. . Current Hospital Diet Patient's current hospital diet: Regular OB Diet Discharge Diet Recommended Diet: Regular Diet Procedures Procedures Performed: Primary caesarean section Lower tranverse uterine incision Pending Studies Studies pending at discharge: no Medical Emergencies . Who to Call and When: Medical Emergencies: If at any time you feel your situation is an emergency, please call [phone] immediately. . Non-Emergent Contact Non-Emergency issues call your: Specialist . . "Provider Documentation" section prepared by Jd Young. . VTE Core Measure Inpt VTE Proph given/why not?: Treatment not indicated
[2017-03-12] MEDS ORDERED: NURSING VERBAL MED ORDER ONE (10:45)
[2017-03-12 15:18] VITALS: BP_DIAS 79; PULSE 74; TEMP 36.3
== END 2017-03-12 15:55 | disposition home or self-care (01) | DRG 765 ==
LOC: C.LD 07:46 → C.OBG 03-09 21:08
PROVIDERS: ADMIT Obstetrics & Gynecology; ATTEND Obstetrics & Gynecology
PROC: 3E033VJ Introduction of Other Hormone into Peripheral Vein, Percutaneous Approach (ICD-10-PCS; principal; 2017-03-08)
PROC: 10907ZC Drainage of Amniotic Fluid, Therapeutic from Products of Conception, Via Natural or Artificial Opening (ICD-10-PCS; principal; 2017-03-08)
PROC: 10D00Z1 Extraction of Products of Conception, Low, Open Approach (ICD-10-PCS; 2017-03-09)
DX: O62.1 Secondary uterine inertia (principal); D62 Acute posthemorrhagic anemia; O98.32 Other infections with a predominantly sexual mode of transmission complicating childbirth; O77.0 Labor and delivery complicated by meconium in amniotic fluid; O48.0 Post-term pregnancy; O99.03 Anemia complicating the puerperium; A60.09 Herpesviral infection of other urogenital tract; R19.7 Diarrhea, unspecified; Z3A.40 40 weeks gestation of pregnancy; Z37.0 Single live birth; Z79.899 Other long term (current) drug therapy

== ENCOUNTER 2020-01-17 16:11 | Inpatient (IN) ==
[2020-01-17 17:21] VITALS: O2SAT 97
[2020-01-17 17:30] LABS: Eosinophils # (auto) 0.02 K/uL (0-0.5); Eosinophils % (auto) 0.1 %; Hematocrit (blood only) 31.6 % (37-47); Hemoglobin 11.1 g/dL (12.0-16.0); Immature Granulocytes # (auto) 0.05 K/uL (0.00-0.02); Immature Granulocytes % (auto) 0.3 %; Lymphocytes % (auto) 4.8 %; Mean Corpuscular Hemoglobin 33.3 pg (25-34); Mean Corpuscular Volume 94.9 fL (80-100); Monocytes # (auto) 1.25 K/uL (0.11-0.59); Monocytes % (auto) 8.6 %; Neutrophils # (auto) 12.53 K/uL (1.4-6.5); Neutrophils % (auto) 86.2 %; Platelet Count 224 K/uL (130-400); RDW Coefficient of Variation 12.9 % (11.5-14.5); RDW Standard Deviation 44.3 fL (36.4-46.3); Red Blood Count 3.33 M/uL (4.2-5.4); White Blood Count 14.55 K/uL (4.8-10.8)
[2020-01-17 17:39] LABS: Mean Corpuscular Hgb Conc 35.1 g/dL (32-36)
[2020-01-17 17:46] LABS: Albumin Level 2.8 gm/dl (3.4-5.0); BUN Creatinine Ratio 12.3 (10-20); Blood Urea Nitrogen 7 mg/dl (7-18); Carbon Dioxide 19 mmol/L (21-32); Chloride 107 mmol/L (98-107); Creatinine Clr Calc Pharmacy 107.4 ml/min; Est GFR (African American) > 150.0; Est GFR (Non-African American) 130.2; Glucose 76 mg/dl (70-99); Potassium 3.7 mmol/L (3.5-5.1); Sodium 134 mmol/L (136-145)
[2020-01-17 17:49] LABS: Alanine Aminotransferase 9 U/L (12-78); Albumin Globulin Ratio 0.8 (0.9-2); Alkaline Phosphatase 54 U/L (45-117); Aspartate Aminotransferase 11 U/L (15-37); Bilirubin,Total 0.6 mg/dl (0.2-1); Globulin 3.7 gm/dl (2.5-4.0); Total Protein 6.5 gm/dl (6.4-8.2)
--- NOTE | 2020-01-17 18:09 | Ultrasound Report ---
US OB limited CLINICAL HISTORY: Premature rupture of membranes. COMPARISON STUDY: No previous studies for comparison. FINDINGS: A single live fetus in cephalic presentation was visualized. The placenta was anterior. There is no a mniotic fluid. This limited evaluation of anatomy. The maternal cervix appeared closed. An accu rate head circumference could not be obtained due to position. The femur measured 2.4 cm corres ponding to an estimated postmenstrual age is 17 weeks and 2 days. The heart rate is 144. IMPRESSION: 1. Single live fetus in cephalic presentation. 2. Amniotic fluid index of 0 3. Estimated postmenstrual age is 17 weeks 2 days 4. Anterior placenta 5. 2.1 cm maternal cervix which appeared closed ACT 112: Negative or not required by law. Electronically signed by: Emil Govea M.D. 01/17/2020 6:08 PM
[2020-01-17] MEDS ORDERED: GENTAMICIN CONSULT ACTIVE PRN (20:38)
[2020-01-17] MEDS ORDERED: OXYTOCIN 30 UNITS/500 ML BAG IV PRN (20:38)
--- NOTE | 2020-01-17 20:53 | Progress Note ---
Date of Service January 17, 2020 Assessment & Plan Admission and Anticipated Discharge Date Admission Date: January 17, 2020 Subjective Pt and mother agreeable to induction of labor pt is febrile Elevated WBC discussed concerns of chorioamnionitis and sepsis with pt pt is agreeable to sta for induction of labor discussed Cytotec and risk of uterine rapture to pt and mother . both agreeable and are willing to proceed with indiction Results & Data ([facility]) Vital Signs (Past 12 Hours) Vital Signs Temp Pulse Resp BP Pulse Ox 01/17/20 20:00 38.0 C H 01/17/20 19:15 139 H 116/72 01/17/20 19:13 39.3 C H 18 01/17/20 17:19 139 H 97 01/17/20 17:14 137 H 99 01/17/20 17:09 136 H 99 01/17/20 17:04 131 H 100 01/17/20 16:59 129 H 100 01/17/20 16:54 139 H 100 01/17/20 16:49 127 H 100 01/17/20 16:44 122 H 100 01/17/20 16:39 124 H 100 01/17/20 16:34 120 H 100 01/17/20 16:29 118 H 100 01/17/20 16:24 129 H 100 01/17/20 16:23 37.8 C H 129 H 20 122/83
[2020-01-17] MEDS: LACTATED RINGER'S 1,000 ML IV PRN ×2 (20:59→21:53)
[2020-01-17] MEDS: ACETAMINOPHEN 500 MG TAB PO PRN (21:24)
[2020-01-17] MEDS: AMPICILLIN 2,000 MG in SODIUM CHLOR 0.9% AD-VAN 100 ML IV SCH (21:28)
[2020-01-17] MEDS ORDERED: GENTAMICIN SULFATE IV SCH (23:00)
[2020-01-17] MEDS ORDERED: DEXTROSE 5% IV SCH (23:00)
[2020-01-17] MEDS: miSOPROStoL 200 MCG TAB PO SCH (23:03)
[2020-01-18] MEDS ORDERED: miSOPROStoL 200 MCG TAB PO SCH
[2020-01-18] MEDS ORDERED: ONDANSETRON INJ 2 MG/ML 2 ML VIAL IV PRN (02:12)
[2020-01-18] MEDS ORDERED: BUTORPHANOL TARTRATE 1 MG/ML VIAL IV PRN (02:12)
[2020-01-18] MEDS ORDERED: BUTORPHANOL TARTRATE 1 MG/ML VIAL ONE (02:17)
[2020-01-18] MEDS: miSOPROStoL 200 MCG TAB PO SCH (03:24)
[2020-01-18] MEDS ORDERED: METHYLERGONOVINE MALEATE 0.2 MG/ML AMP ONE (03:31)
[2020-01-18] MEDS ORDERED: IBUPROFEN 600 MG TAB PO PRN (03:38)
[2020-01-18] MEDS ORDERED: METHYLERGONOVINE MALEATE 0.2 MG/ML AMP IM ONE (03:38)
[2020-01-18] MEDS ORDERED: HYDROCORTISONE ACETATE 25 MG SUPP PR PRN (03:38)
[2020-01-18] MEDS ORDERED: bisacodyL 10 MG SUPP PR PRN (03:38)
[2020-01-18] MEDS ORDERED: ACETAMINOPHEN 325 MG TAB PO PRN (03:38)
[2020-01-18] MEDS ORDERED: OXYTOCIN 30 UNITS/500 ML BAG IV PRN (03:38)
[2020-01-18] MEDS ORDERED: BENZOCAINE 20% AER SPR 82.5 GM CAN EXT PRN (03:38)
[2020-01-18] MEDS ORDERED: DIPHTHERIA/TETANUS/PERTUSSIS 0.5 ML SYR/VIAL IM ONE (03:38)
[2020-01-18] MEDS ORDERED: SUPERCREAM 0.870% 15 GM JAR EXT PRN (03:38)
[2020-01-18] MEDS: AMPICILLIN 2,000 MG in SODIUM CHLOR 0.9% AD-VAN 100 ML IV SCH ×4 (04:10→21:54)
[2020-01-18] MEDS: ACETAMINOPHEN 500 MG TAB PO PRN (06:05)
[2020-01-18] MEDS: LACTATED RINGER'S 1,000 ML IV PRN ×2 (06:32→14:04)
[2020-01-18] MEDS: DOCUSATE SODIUM 100 MG CAP PO SCH ×2 (08:43→21:28)
[2020-01-18] MEDS: PRENATAL VITAMIN 1 TAB PO SCH (08:44)
[2020-01-18] MEDS ORDERED: Nursing to Pharmacy Communication SCH (08:45)
--- NOTE | 2020-01-18 09:09 | Progress Note ---
Date of Service January 18, 2020 Assessment & Plan Admission and Anticipated Discharge Date Admission Date: January 17, 2020 Subjective Pt doing well febrile - O antibx tolerating PO food and meds Improved lochia A/p Chorioamnionitis continue antibx for 24 hrs Results & Data ([facility]) Vital Signs (Past 12 Hours) Vital Signs Temp Pulse Resp BP 01/18/20 07:07 38 C H 112 H 20 111/65 01/18/20 06:00 37.8 C H 18 01/18/20 05:48 114 H 127/66 01/18/20 05:33 121 H 18 120/61 01/18/20 05:18 113 H 113/59 L 01/18/20 05:03 111 H 16 119/68 01/18/20 04:48 106 H 119/71 01/18/20 04:33 110 H 18 119/73 01/18/20 04:18 111 H 18 117/78 01/18/20 04:03 110 H 18 112/71 01/18/20 03:48 111 H 18 103/66 01/18/20 03:35 37.0 C 18 01/18/20 03:33 37.0 C 115 H 18 115/75 01/18/20 01:04 37.7 C H 125 H 18 104/57 L 01/17/20 23:01 37.3 C 131 H 18 112/64 01/17/20 21:24 38.5 C H 18
--- NOTE | 2020-01-18 09:57 | Pharmacy Report ---
Pharmacy Abx Initial Consult - Date of Service January 18, 2020 - Pharmacy Dosing Scope Date of Consult: 01/17/20 Consultation requested by: Dr. Young Pharmacy is consulted to initiate [] IV/PO dosing therapy, order appropriate labs and adjust drug dose/frequency. - Subjective The patient is a 24 year old F admitted on 01/17/20 20:39. - Objective Height: 5 ft 2 in Weight: 43.091 kg Vital Signs (Past 12hrs): Vital Signs Temp Pulse Resp BP 01/18/20 07:07 38 C H 112 H 20 111/65 01/18/20 06:00 37.8 C H 18 01/18/20 05:48 114 H 127/66 01/18/20 05:33 121 H 18 120/61 01/18/20 05:18 113 H 113/59 L 01/18/20 05:03 111 H 16 119/68 01/18/20 04:48 106 H 119/71 01/18/20 04:33 110 H 18 119/73 01/18/20 04:18 111 H 18 117/78 01/18/20 04:03 110 H 18 112/71 01/18/20 03:48 111 H 18 103/66 01/18/20 03:35 37.0 C 18 01/18/20 03:33 37.0 C 115 H 18 115/75 01/18/20 01:04 37.7 C H 125 H 18 104/57 L 01/17/20 23:01 37.3 C 131 H 18 112/64 Lab Results (24hrs): Laboratory Tests (24 Hours) 01/18/20 01/17/20 01/17/20 08:01 17:18 17:18 WBC 14.55 H Neut # (Auto) 12.53 H Creatinine 0.54 L Est Cr Clr Drug Dosing 107.4 Random Gentamicin 0.60 - Assessment & Plan Plan Gentamicin * Both extended interval dosing and conventional dosing have been studied in intrapartum and patients. Currently, there is more data to support the use of extended interval dosing in the setting. * Dose: 220 mg (5mg/kg) IV q24h - dose based on actual body weight of 43.1 kg (pt weight confirmed with RN). * Monitoring: gent levels do not need to be monitored in patients receiving gentamicin 5mg/kg q24 for short course of therapy (<72 hours) as long as they have normal renal function * Ms. Soler's eCrCl > 100ml/min. If therapy continues for > 72 hours, pharmacy will obtain a trough level 30 minutes prior to next dose. Target trough <1 mcg/ml. Pharmacy will continue to follow and will adjust dose/frequency as necessary. Thank you.
--- NOTE | 2020-01-18 10:56 | Delivery Summary ---
DATE OF OPERATION: 01/18/2020 DICTATION STARTS ABRUPTLY infant. Weight and Apgars in the pediatric records. I attest to the content of the Intraoperative Record and any orders documented therein. Any exception s are noted below.
--- NOTE | 2020-01-18 11:02 | Delivery Summary ---
DATE OF OPERATION: 01/18/2020 DELIVERY NOTE: The patient is a 24-year-old G2, P1 at 17 weeks gestation, who presented with spontaneous rupture of membranes over 24 hours ago. ultrasound done showed no amniotic fluid. The patient was experiencing fevers and elevated white count with body aches. Expected management and induction of labor was discussed with the patient. The patient agreed to proceed with a speculum with induction of labor. She received 1 dose of p.o. Cytotec and delivered a spontaneous 17-week gestation . Cord was clamped and cut. Placenta was spontaneously delivered. The nurse reported documented heart rate in 70s. therefore is 1. Inspection of the perineum showed no laceration or tears. ESTIMATED BLOOD LOSS: 100 mL The patient is doing well in recovery. All instruments were removed from the vagina and accounted for. As stated above, the patient is stable in recovery. I attest to the content of the Intraoperative Record and any orders documented therein. Any exception s are noted below.
[2020-01-18 12:16] LABS: Basophils # (auto) 0.01 K/uL (0-0.2); Basophils % (auto) 0.1 %; Eosinophils # (auto) 0.02 K/uL (0-0.5); Eosinophils % (auto) 0.1 %; Hematocrit (blood only) 28.1 % (37-47); Hemoglobin 9.9 g/dL (12.0-16.0); Immature Granulocytes # (auto) 0.03 K/uL (0.00-0.02); Immature Granulocytes % (auto) 0.2 %; Lymphocytes # (auto) 1.24 K/uL (1.2-3.4); Lymphocytes % (auto) 8.2 %; Mean Corpuscular Hemoglobin 33.1 pg (25-34); Mean Corpuscular Hgb Conc 35.2 g/dL (32-36); Mean Platelet Volume 11.2 fL (7.4-10.4); Monocytes # (auto) 1.52 K/uL (0.11-0.59); Monocytes % (auto) 10.1 %; Neutrophils # (auto) 12.29 K/uL (1.4-6.5); Neutrophils % (auto) 81.3 %; Platelet Count 194 K/uL (130-400); RDW Coefficient of Variation 13.1 % (11.5-14.5); Red Blood Count 2.99 M/uL (4.2-5.4); White Blood Count 15.11 K/uL (4.8-10.8)
[2020-01-18 19:15] VITALS: TEMP 97.7
[2020-01-18] MEDS ORDERED: DEXTROSE 5% IV SCH (23:00)
[2020-01-18] MEDS ORDERED: GENTAMICIN SULFATE IV SCH (23:00)
[2020-01-19] MEDS: AMPICILLIN 2,000 MG in SODIUM CHLOR 0.9% AD-VAN 100 ML IV SCH (04:24)
[2020-01-19 06:26] LABS: Hematocrit (blood only) 23.8 % (37-47); Hemoglobin 8.4 g/dL (12.0-16.0); Mean Corpuscular Hemoglobin 33.3 pg (25-34); Mean Corpuscular Hgb Conc 35.3 g/dL (32-36); Mean Corpuscular Volume 94.4 fL (80-100); Mean Platelet Volume 10.7 fL (7.4-10.4); Platelet Count 172 K/uL (130-400); RDW Coefficient of Variation 13.4 % (11.5-14.5); RDW Standard Deviation 46.6 fL (36.4-46.3); Red Blood Count 2.52 M/uL (4.2-5.4); White Blood Count 9.35 K/uL (4.8-10.8)
[2020-01-19 08:25] VITALS: BP 100/54; PULSE 77
[2020-01-19] MEDS: DOCUSATE SODIUM 100 MG CAP PO SCH (09:16)
[2020-01-19] MEDS: PRENATAL VITAMIN 1 TAB PO SCH (09:16)
--- NOTE | 2020-01-19 09:46 | Obstetrical Progress Note ---
Date of Service January 19, 2020 Assessment & Plan Admission and Anticipated Discharge Date Admission Date: January 17, 2020 Subjective PPD#1 s/p delivery at 17 weeks doing well ambulating tolerating diet no bleeding Physical Exam Constitutional: WD/WN, vitals as above comfortable abdomen soft no edema neg Bryce's for d/c Results & Data ([facility]) Vital Signs (Past 12 Hours) Vital Signs Temp Pulse Resp BP 01/19/20 08:23 77 100/54 L 01/19/20 08:15 36.5 C 18 01/19/20 04:25 36.5 C 82 16 94/52 L 01/18/20 23:03 36.5 C 84 18 99/55 L Laboratory Results Laboratory Results - last 72 hr 01/17/20 01/17/20 01/17/20 17:18 17:18 17:18 WBC 14.55 H RBC 3.33 L Hgb 11.1 L Hct 31.6 L MCV 94.9 MCH 33.3 MCHC 35.1 RDW Std Deviation 44.3 RDW Coeff of Steve 12.9 Plt Count 224 MPV 11.0 H Immature Gran % (Auto) 0.3 Neut % (Auto) 86.2 Lymph % (Auto) 4.8 [place] % (Auto) 8.6 Eos % (Auto) 0.1 Baso % (Auto) 0.0 Neut # (Auto) 12.53 H Lymph # (Auto) 0.70 L [place] # (Auto) 1.25 H Eos # (Auto) 0.02 Baso # (Auto) 0.00 Immature Gran # (Auto) 0.05 H PT 11.0 INR 1.0 Sodium 134 L Potassium 3.7 Chloride 107 Carbon Dioxide 19 L Anion Gap 8.0 BUN 7 Creatinine 0.54 L Est Cr Clr Drug Dosing 107.4 Est GFR ( Amer) > 150.0 Est GFR (Non-Af Amer) 130.2 BUN/Creatinine Ratio 12.3 Glucose 76 Calcium 9.0 Total Bilirubin 0.6 AST 11 L ALT 9 L Alkaline Phosphatase 54 Total Protein 6.5 Albumin 2.8 L Globulin 3.7 Albumin/Globulin Ratio 0.8 L Random Gentamicin COVID-19 Eval Order COVID-19 PCR 01/17/20 01/17/20 01/17/20 21:20 22:36 22:36 WBC RBC Hgb Hct MCV MCH MCHC RDW Std Deviation RDW Coeff of Steve Plt Count MPV Immature Gran % (Auto) Neut % (Auto) Lymph % (Auto) [place] % (Auto) Eos % (Auto) Baso % (Auto) Neut # (Auto) Lymph # (Auto) [place] # (Auto) Eos # (Auto) Baso # (Auto) Immature Gran # (Auto) PT INR Sodium Potassium Chloride Carbon Dioxide Anion Gap BUN Creatinine Est Cr Clr Drug Dosing Est GFR ( Amer) Est GFR (Non-Af Amer) BUN/Creatinine Ratio Glucose Calcium Total Bilirubin AST ALT Alkaline Phosphatase Total Protein Albumin Globulin Albumin/Globulin Ratio Random Gentamicin COVID-19 Eval Order Cancelled Covid19 Done at [facility] COVID-19 PCR NEGATIVE 01/18/20 01/18/20 01/19/20 08:01 12:03 06:15 WBC 15.11 H 9.35 RBC 2.99 L 2.52 L Hgb 9.9 L 8.4 L Hct 28.1 L 23.8 L MCV 94.0 94.4 MCH 33.1 33.3 MCHC 35.2 35.3 RDW Std Deviation 45.0 46.6 H RDW Coeff of Steve 13.1 13.4 Plt Count 194 172 MPV 11.2 H 10.7 H Immature Gran % (Auto) 0.2 Neut % (Auto) 81.3 Lymph % (Auto) 8.2 [place] % (Auto) 10.1 Eos % (Auto) 0.1 Baso % (Auto) 0.1 Neut # (Auto) 12.29 H Lymph # (Auto) 1.24 [place] # (Auto) 1.52 H Eos # (Auto) 0.02 Baso # (Auto) 0.01 Immature Gran # (Auto) 0.03 H PT INR Sodium Potassium Chloride Carbon Dioxide Anion Gap BUN Creatinine Est Cr Clr Drug Dosing Est GFR ( Amer) Est GFR (Non-Af Amer) BUN/Creatinine Ratio Glucose Calcium Total Bilirubin AST ALT Alkaline Phosphatase Total Protein Albumin Globulin Albumin/Globulin Ratio Random Gentamicin 0.60 COVID-19 Eval Order COVID-19 PCR
[2020-01-19] MEDS ORDERED: bisacodyL 5 MG TABEC PO SCH (20:00)
--- NOTE | 2020-02-11 02:21 | Discharge Summary (DS) ---
HISTORY OF PRESENT ILLNESS: This is a 24-year-old G2, P1 who presented to labor and delivery on 01/17/2020 at 17 weeks and 4 days gestation with spontaneous rupture of membrane. The patient on that day was febrile and had signs of chorioamnionitis. Decision was therefore made to induce labor. The patient went on with induction of labor after risks and benefits were discussed with the patient and her mother. She delivered an on 01/18/2020, this was a nonviable infant. Details of delivery is in the pediatric record. Delivery induction was performed with Cytotec. On 01/19/2020, the patient was discharged home in stable condition. PAST MEDICAL HISTORY: The patient had history of anxiety, history of HPV, Raynaud's and tachycardia. PAST SURGICAL HISTORY: The patient has a history of section. SOCIAL HISTORY: The patient was single. Denies drug, tobacco or alcohol use. FAMILY HISTORY: Noncontributory. ALLERGIES: THE PATIENT REPORTS AN ALLERGY TO SULFA MEDICATION. VITAL SIGNS: On 01/19/2020 showed blood pressure of 100/54, pulse of 77, respiration of 18. DATA: On 01/19/2020 showed hemoglobin of 8.4, hematocrit of 23.8. PHYSICAL EXAMINATION HEART: S1, S2, regular rhythm and rate. LUNGS: Clear to auscultation bilaterally. ABDOMEN: Nontender, nondistended. Improved bleeding prior to discharge. EXTREMITIES: No cyanosis, clubbing or edema. CONDITION ON DISCHARGE: Stable. OPERATION: Delivery of infant at 17+ weeks status post chorioamnionitis. PLAN ON DISCHARGE: The patient was discharged home with instructions regarding activity, diet, followup appointments and medications.
== END 2020-01-19 10:12 | disposition home or self-care (01) | DRG 807 ==
LOC: 4S1 16:11 → OPB 16:11 → 4S1 16:12 → OBSVTOIN 19:10 → 4S1 20:47

== ENCOUNTER 2020-02-05 17:45 | Observation (INO) ==
[~2020-02-05 17:45] MED LIST changes: -ACYC-223 PO; -FERR1TAB39 OR; -PRENTAB26 PO; +SODIUM CHLORIDE 0.9% 1000ML 1,000 ML IV SCH
[2020-02-05] MEDS ORDERED: KETOROLAC TROMETHAMINE 15 MG/ML VIAL IV STA (18:28)
[2020-02-05] MEDS ORDERED: SODIUM CHLORIDE 0.9% 1000ML 1,000 ML IV ONE (18:28)
--- NOTE | 2020-02-05 18:35 | Emergency Department Note ---
Impression & Plan Vaginal bleeding, Tachycardia, Status post vaginal delivery ED Provider Note NAME: FEDERICA IVERSON AGE: 24 SEX: F : 1995 ARRIVES VIA: Ambulance INFORMANT: [Patient] ED PROVIDER(S): [Riky Toribio MD] CHIEF COMPLAINT: Vaginal bleeding HISTORY OF PRESENT ILLNESS: The patient is a 24-year-old female who states that 2 hours and 45 minutes ago, she was in her kitchen. She felt a eldridge of liquid vaginally and was bleeding heavily. She has developed some pelvic cramping that is mild in severity at a 1 on a scale of 1-10. Patient states the bleeding has continued. She has no nausea, she is not short of breath. She spoke to her OB office and was referred to the ED. The patient states that she did have an induction at 17 weeks on January 17, she had to receive a medication to help control her bleeding after the induction. The patient has not had fever. There have been no urinary complaints. She was reportedly tachycardic as per EMS. She arrives by ambulance. Of note, the patient does have a history of anemia. She did receive a blood transfusion in 2017 from bleeding after a . REVIEW OF SYSTEMS: See HPI for pertinent positives and negatives. A total of ten systems were reviewed and were otherwise negative. PMHx/PSHx: See Below SOCIAL HISTORY: See Below. PHYSICAL EXAM: GENERAL: Patient is in no acute distress. HEENT: No acute trauma, normocephalic atraumatic, mucous membranes moist, no nasal congestion, no scleral icterus. NECK: No stridor, no adenopathy, no meningismus, trachea is midline. LUNGS: Clear to auscultation bilaterally, no wheeze, no rhonchi, breath sounds equal. HEART: Without murmurs gallops or rubs, mildly tachycardic, regular rhythm. ABDOMEN: Soft, nontender, bowel sounds positive, no hernias, no peritonitis. EXTREMITIES: No cyanosis or edema, full range of motion of all the joints without pain or difficulty, no signs for acute trauma. NEUROLOGIC: Oriented x 3, no acute motor or sensory deficits, no focal weakness. SKIN: No rash, no jaundice, no diaphoresis. Pale. Vaginal: She has heavy vaginal bleeding. I did attempt to visualize the cervix but she was bleeding so heavily, this was not possible. I even attempted suction to help with visualization. Blood was bright red and there were clots present. DIFFERENTIAL DIAGNOSIS: Etiologies such as threatened AB, miscarriage, ectopic , pain products of conception, dysfunction uterine bleeding, bleeding dyscrasia, trauma, infection, as well as others were entertained. EMERGENCY DEPARTMENT COURSE/PROCEDURES: MEDICAL DECISION MAKING: There is no leukocytosis. Hemoglobin is adequate at 11.5. There is a normal platelet count. No coagulopathy. No significant electrolyte abnormality or kidney failure. Blood type was A positive. Rapid Covid testing was negative. On exam, the patient was bleeding heavily from the vaginal area. She was mildly tachycardic, she was not toxic. She was not hypotensive. I spoke to OB immediately after seeing the patient. The patient was seen here by the OB physician. The patient is going to the operating room for a D&C. Retained products of conception was thought possible given the history and exam. The patient is aware of her findings, she is currently comfortable. She did not require anything for pain. She was given a liter of IV saline for hydration, she received IV Toradol to try to help stanch some of the bleeding and to help with her pelvic cramping. Past Med/Surg History Medical History Anxiety History of HPV infection Hx of herpes simplex infection Raynauds disease Rolandic epilepsy Surgical History History of delivery Social History Smoking Status: Former smoker Hx Alcohol Use: No Hx Substance Use: No Preferred Language: Swedish Communication Ability: Effective Affiliate Marketing Coordinator Required: No Beliefs That Will Affect Care: None marital status: Single Current Living Situation: Significant Other Feels Safe at Home: Yes Assistive Devices: None Allergies Allergies Allergy/AdvReac Type Severity Reaction Status Date / Time fire ant Allergy Intermediate Hives Verified 02/05/20 19:19 Sulfa (Sulfonamide Allergy Unknown HIVES Verified 02/05/20 19:19 Antibiotics) Home Meds Home Medications Medication Instructions Recorded Confirmed No Known Home Medications 02/05/20 02/05/20 Results & Data (ED) Vital Signs Vital Signs - 24 hr 02/05/20 17:55 02/05/20 18:16 02/05/20 18:18 Temperature Temperature Source Pulse Rate 109 H 94 H 109 H Pulse Rate [Apical] Pulse Rate from SpO2 Sensor 107 H 94 H 110 H Pulse Rhythm [Apical] Respiratory Rate 17 14 18 Respiratory Effort / Characteristics Respiratory Depth Respiratory Pattern Blood Pressure 145/85 H 133/104 H Blood Pressure [Left Arm] Blood Pressure Mean 130 111 Blood Pressure Mean [Left Arm] Blood Pressure Position Blood Pressure Position [Left Arm] Pulse Oximetry 100 99 99 Oxygen Delivery Method Sepsis Recent Fever Within 48 Hours Sepsis New/Unexplained Change in Mental Status Sepsis Action Taken by Nursing 02/05/20 18:20 02/05/20 18:30 02/05/20 18:40 Temperature 37.4 C Temperature Source Oral Pulse Rate 108 H Pulse Rate [Apical] Pulse Rate from SpO2 Sensor 103 H 105 H 103 H Pulse Rhythm [Apical] Respiratory Rate 17 Respiratory Effort / Characteristics Non-Labored Spontaneous Respiratory Depth Normal Respiratory Pattern Blood Pressure 145/85 H Blood Pressure [Left Arm] Blood Pressure Mean 105 Blood Pressure Mean [Left Arm] Blood Pressure Position Lying Blood Pressure Position [Left Arm] Pulse Oximetry 99 100 100 Oxygen Delivery Method Room Air Sepsis Recent Fever Within 48 Hours No Sepsis New/Unexplained Change in Mental Status No Sepsis Action Taken by Nursing No Action Required 02/05/20 18:50 02/05/20 19:00 02/05/20 19:54 Temperature Temperature Source Pulse Rate 116 H Pulse Rate [Apical] Pulse Rate from SpO2 Sensor 92 H 104 H Pulse Rhythm [Apical] Respiratory Rate 14 Respiratory Effort / Characteristics Respiratory Depth Respiratory Pattern Blood Pressure 129/94 122/88 Blood Pressure [Left Arm] Blood Pressure Mean 100 Blood Pressure Mean [Left Arm] Blood Pressure Position Blood Pressure Position [Left Arm] Pulse Oximetry 100 98 98 Oxygen Delivery Method Room Air Sepsis Recent Fever Within 48 Hours Sepsis New/Unexplained Change in Mental Status Sepsis Action Taken by Nursing 02/05/20 20:51 02/05/20 21:00 02/05/20 21:10 Temperature 36.7 C Temperature Source Temporal Artery Scan Pulse Rate Pulse Rate [Apical] 108 H 86 86 Pulse Rate from SpO2 Sensor Pulse Rhythm [Apical] Regular Regular Regular Respiratory Rate 16 16 16 Respiratory Effort / Characteristics Non-Labored Spontaneous Non-Labored Spontaneous Non-Labored Spontaneous Respiratory Depth Normal Normal Normal Respiratory Pattern Regular Regular Regular Blood Pressure Blood Pressure [Left Arm] 109/77 100/70 100/70 Blood Pressure Mean Blood Pressure Mean [Left Arm] 87 80 80 Blood Pressure Position Blood Pressure Position [Left Arm] Lying Lying Lying Pulse Oximetry 100 98 98 Oxygen Delivery Method Room Air Room Air Room Air Sepsis Recent Fever Within 48 Hours Sepsis New/Unexplained Change in Mental Status Sepsis Action Taken by Nursing 02/05/20 21:20 Temperature 36.6 C Temperature Source Temporal Artery Scan Pulse Rate Pulse Rate [Apical] 91 H Pulse Rate from SpO2 Sensor Pulse Rhythm [Apical] Regular Respiratory Rate 14 Respiratory Effort / Characteristics Non-Labored Spontaneous Respiratory Depth Normal Respiratory Pattern Regular Blood Pressure Blood Pressure [Left Arm] 110/74 Blood Pressure Mean Blood Pressure Mean [Left Arm] 86 Blood Pressure Position Blood Pressure Position [Left Arm] Lying Pulse Oximetry 97 Oxygen Delivery Method Room Air Sepsis Recent Fever Within 48 Hours Sepsis New/Unexplained Change in Mental Status Sepsis Action Taken by Snf Medications Current Medication List: was personally reviewed by me Laboratory Data Attestation: I reviewed the patient's lab results. Result diagrams: 02/05/20 18:11 02/05/20 18:11 Lab Results 02/05/20 02/05/20 02/05/20 Range/Units 18:11 18:11 18:11 WBC 8.09 (4.8-10.8) K/uL RBC 3.59 L (4.2-5.4) M/uL Hgb 11.5 L (12.0-16.0) g/dL Hct 34.8 L (37-47) % MCV 96.9 (80-100) fL MCH 32.0 (25-34) pg MCHC 33.0 (32-36) g/dL RDW Std Deviation 43.6 (36.4-46.3) fL RDW Coeff of Steve 12.2 (11.5-14.5) % Plt Count 401 H (130-400) K/uL MPV 11.4 H (7.4-10.4) fL PT 11.6 (9.0-12.0) Seconds INR 1.1 (0.9-1.1) APTT 28.0 (21.0-31.0) Seconds PTT Ratio 1.0 Sodium (136-145) mmol/L Potassium (3.5-5.1) mmol/L Chloride (98-107) mmol/L Carbon Dioxide (21-32) mmol/L Anion Gap (3-11) BUN (7-18) mg/dl Creatinine (0.6-1.2) mg/dl Est Cr Clr Drug Dosing ml/min Est GFR ( Amer) Est GFR (Non-Af Amer) BUN/Creatinine Ratio (10-20) Glucose (70-99) mg/dl Calcium (8.5-10.1) mg/dl COVID-19 Eval Order SARS-CoV-2, RNA, NAAT (NEGATIVE) Blood Type A Positive Antibody Screen POSITIVE A Crossmatch See Detail 02/05/20 02/05/20 02/05/20 Range/Units 18:11 19:25 19:25 WBC (4.8-10.8) K/uL RBC (4.2-5.4) M/uL Hgb (12.0-16.0) g/dL Hct (37-47) % MCV (80-100) fL MCH (25-34) pg MCHC (32-36) g/dL RDW Std Deviation (36.4-46.3) fL RDW Coeff of Steve (11.5-14.5) % Plt Count (130-400) K/uL MPV (7.4-10.4) fL PT (9.0-12.0) Seconds INR (0.9-1.1) APTT (21.0-31.0) Seconds PTT Ratio Sodium 139 (136-145) mmol/L Potassium 3.7 (3.5-5.1) mmol/L Chloride 111 H (98-107) mmol/L Carbon Dioxide 23 (21-32) mmol/L Anion Gap 5.0 (3-11) BUN 12 (7-18) mg/dl Creatinine 0.66 (0.6-1.2) mg/dl Est Cr Clr Drug Dosing 82.8 ml/min Est GFR ( Amer) 141.3 Est GFR (Non-Af Amer) 121.9 BUN/Creatinine Ratio 18.5 (10-20) Glucose 107 H (70-99) mg/dl Calcium 8.7 (8.5-10.1) mg/dl COVID-19 Eval [facility] SARS-CoV-2, RNA, NAAT NEGATIVE (NEGATIVE) Blood Type Antibody Screen Crossmatch Administered Medications Discontinued Medications Ferric Subsulfate (Ferric Subsulfate 8 Gm Vial) Confirm Administered Dose 8 gm .ROUTE .STK-MED ONE Stop: 02/05/20 19:35 Last Admin: 02/05/20 20:35 Dose: 8 gm Documented by: [id number] Sodium Chloride (Nss 1000ml) 1,000 mls @ 999 mls/hr IV .Q1H1M ONE Stop: 02/05/20 19:28 Last Infusion: 02/05/20 19:26 Dose: 0 mls/hr Documented by: [id number] Admin: 02/05/20 18:38 Dose: 999 mls/hr Documented by: [id number] Cefazolin Sodium (Ancef 2000mg) 2,000 mg in 15 mls @ 3.75 mls/min IV PREOP ONE Stop: 02/05/20 19:03 Last Admin: 02/05/20 19:18 Dose: 3.75 mls/min Documented by: [id number] Ketorolac Tromethamine (Ketorolac Tromethamine 15 Mg/Ml Vial) 15 mg IV NOW STA Stop: 02/05/20 18:29 Last Admin: 02/05/20 18:45 Dose: 15 mg Documented by: [id number] Methylergonovine Maleate (Methylergonovine Maleate 0.2 Mg/Ml Amp) Confirm Administered Dose 0.2 mg .ROUTE .STK-MED ONE Stop: 02/05/20 19:35 Last Admin: 02/05/20 20:35 Dose: 0.2 mg Documented by: [id number] Cosigned by: [id number] Misoprostol (Misoprostol 200 Mcg Tab) Confirm Administered Dose 800 mcg .ROUTE .STK-MED ONE Stop: 02/05/20 19:35 Last Admin: 02/05/20 20:30 Dose: 800 mcg Documented by: [id number] Discharge Plan Visit Data Chief Complaint: Vaginal Bleeding Stated Complaint: AB PAIN, VAGINAL BLEEDING ED Provider: Riky Toribio Discharge Problem: Vaginal bleeding, Tachycardia, Status post vaginal delivery Patient Disposition: Admitted As Inpatient Condition: Fair Discharge Instructions Interventions: ED Discharge Assessment Last Done: 02/05/20 19:54
[2020-02-05] MEDS ORDERED: SODIUM CHLORIDE 0.9% 250 ML IV PRN (18:39)
[2020-02-05 18:48] LABS: Hematocrit (blood only) 34.8 % (37-47); Hemoglobin 11.5 g/dL (12.0-16.0); Mean Corpuscular Volume 96.9 fL (80-100); Mean Platelet Volume 11.4 fL (7.4-10.4); Platelet Count 401 K/uL (130-400); RDW Coefficient of Variation 12.2 % (11.5-14.5); RDW Standard Deviation 43.6 fL (36.4-46.3); Red Blood Count 3.59 M/uL (4.2-5.4); White Blood Count 8.09 K/uL (4.8-10.8)
[2020-02-05 18:54] LABS: BUN Creatinine Ratio 18.5 (10-20); Calcium 8.7 mg/dl (8.5-10.1); Creatinine Clr Calc Pharmacy 82.8 ml/min; Est GFR (African American) 141.3; Est GFR (Non-African American) 121.9; Potassium 3.7 mmol/L (3.5-5.1)
[2020-02-05 18:58] LABS: INR 1.1 (0.9-1.1); Prothrombin Time 11.6 Seconds (9.0-12.0)
[2020-02-05] MEDS ORDERED: ceFAZolin 2000MG 2,000 MG/15 ML SYR IV ONE (19:00)
--- NOTE | 2020-02-05 19:25 | History & Physical Report ---
Date of Service February 05, 2020 Assessment & Plan (1) Episode of heavy vaginal bleeding: (2) hemorrhage: 24-year-old -1-0-1 female with history of intrauterine demise at 17 weeks and vaginal delivery on January 17. Presenting with active heavy vaginal bleeding, bedside ultrasound suggesting retained products of conception. Vital signs stable afebrile. Discuss and D&C under ultrasound guidance to clear the products of conception and stop bleeding with medications after. She agrees with the recommendation and understand the risks of surgery including but not limited to risk of anesthesia, bleeding, infection, uterine perforation, injury to surrounding organs like bladder bowels More surgeries to correct the complications. She signed an informed consent. OR and ER teams were notified. Type and cross 2 units of red blood cell and proceed with procedure as above. History of Present Illness Chief Complaint: Vaginal bleeding Primary Care Provider: NO PCP Patient is a 24-year-old -1-0-1 female who is status post induction of labor at 17 weeks due to demise and delivery on January 17. She was discharged on January 18 without any problems. Her bleeding was light and then it got to be only spotting as brown to pink discharge. She started to have heavy vaginal bleeding this afternoon around 3 PM she passed golf ball size clot and then was changing her pad every 20 minutes. She called our office and instructed to come to ER. She states she passed 4 more large clots in the bathroom here and ER physician so heavy active bleeding from cervix by speculum exam. Patient denies pain, fever, chills, cold symptoms, chest pain, shortness of breath, dizziness or lightheadedness. Her vital signs have been stable except mild tachycardia. She is sitting comfortably in the bed and talking to me without any distress. She has history of prior in 2017 and blood transfusion due to anemia. She has been taking iron for that. She denies history of bleeding disorders, easy bruisability or petechia. Her periods have been normal, not heavy. Allergies Allergy/AdvReac Type Severity Reaction Status Date / Time fire ant Allergy Intermediate Hives Verified 02/05/20 19:19 Sulfa (Sulfonamide Allergy Unknown HIVES Verified 02/05/20 19:19 Antibiotics) Home Medications Home Medications Medication Instructions Recorded Confirmed Type No Known Home Medications 02/05/20 02/05/20 History Patient History Medical History Anxiety History of HPV infection Hx of herpes simplex infection Raynauds disease Rolandic epilepsy Surgical History History of delivery Social History Smoking Status: Former smoker Hx Alcohol Use: No Hx Substance Use: No Preferred Language: Rwandan Communication Ability: Effective Ride Assembly Supervisor Required: No Beliefs That Will Affect Care: None marital status: Single Current Living Situation: Significant Other Feels Safe at Home: Yes Assistive Devices: None OB History 2017 Csection 01/17: IUFD at 17 wk,s, vaginal delivery and spontaneous delivery of placenta Review of Systems All systems reviewed & are unremarkable except as noted in HPI & below Physical Exam Constitutional: WD/WN, vitals as above well developed, well nourished and + acute distress (Does not appear to be in acute distress.) Cardiovascular: RRR, no murmur, no edema Rate/Rhythm: regular rate, regular rhythm and + tachycardic Gastrointestinal (Abdomen): normal bowel sounds, soft, nontender, no hepatosplenomegaly Inspection/Auscultation: abdomen normal to inspection Genitourinary: normal external appearance (she is sitting, about 100 cc on chuxs.) Results & Data ([facility]) Vital Signs (Past 12 Hours) Vital Signs Temp Pulse Resp BP Pulse Ox 02/05/20 19:00 129/94 98 02/05/20 18:50 100 02/05/20 18:40 100 02/05/20 18:30 100 02/05/20 18:20 37.4 C 108 H 17 145/85 H 99 02/05/20 18:18 109 H 18 99 02/05/20 18:16 94 H 14 133/104 H 99 02/05/20 17:55 109 H 17 145/85 H 100 Laboratory Results Lab Results 02/05/20 02/05/20 02/05/20 Range/Units 18:11 18:11 18:11 WBC 8.09 (4.8-10.8) K/uL RBC 3.59 L (4.2-5.4) M/uL Hgb 11.5 L (12.0-16.0) g/dL Hct 34.8 L (37-47) % MCV 96.9 (80-100) fL MCH 32.0 (25-34) pg MCHC 33.0 (32-36) g/dL RDW Std Deviation 43.6 (36.4-46.3) fL RDW Coeff of Steve 12.2 (11.5-14.5) % Plt Count 401 H (130-400) K/uL MPV 11.4 H (7.4-10.4) fL PT 11.6 (9.0-12.0) Seconds INR 1.1 (0.9-1.1) APTT 28.0 (21.0-31.0) Seconds PTT Ratio 1.0 Sodium (136-145) mmol/L Potassium (3.5-5.1) mmol/L Chloride (98-107) mmol/L Carbon Dioxide (21-32) mmol/L Anion Gap (3-11) BUN (7-18) mg/dl Creatinine (0.6-1.2) mg/dl Est Cr Clr Drug Dosing ml/min Est GFR ( Amer) Est GFR (Non-Af Amer) BUN/Creatinine Ratio (10-20) Glucose (70-99) mg/dl Calcium (8.5-10.1) mg/dl Crossmatch See Detail 02/05/20 Range/Units 18:11 WBC (4.8-10.8) K/uL RBC (4.2-5.4) M/uL Hgb (12.0-16.0) g/dL Hct (37-47) % MCV (80-100) fL MCH (25-34) pg MCHC (32-36) g/dL RDW Std Deviation (36.4-46.3) fL RDW Coeff of Steve (11.5-14.5) % Plt Count (130-400) K/uL MPV (7.4-10.4) fL PT (9.0-12.0) Seconds INR (0.9-1.1) APTT (21.0-31.0) Seconds PTT Ratio Sodium 139 (136-145) mmol/L Potassium 3.7 (3.5-5.1) mmol/L Chloride 111 H (98-107) mmol/L Carbon Dioxide 23 (21-32) mmol/L Anion Gap 5.0 (3-11) BUN 12 (7-18) mg/dl Creatinine 0.66 (0.6-1.2) mg/dl Est Cr Clr Drug Dosing 82.8 ml/min Est GFR ( Amer) 141.3 Est GFR (Non-Af Amer) 121.9 BUN/Creatinine Ratio 18.5 (10-20) Glucose 107 H (70-99) mg/dl Calcium 8.7 (8.5-10.1) mg/dl Crossmatch Diagnostic Findings Bed side US: 2 cm heterogeneous area on the lower uterine segment suggesting retained products of conception.
[2020-02-05] MEDS ORDERED: METHYLERGONOVINE MALEATE 0.2 MG/ML AMP ONE (19:34)
[2020-02-05] MEDS ORDERED: miSOPROStoL 200 MCG TAB ONE (19:34)
[2020-02-05] MEDS ORDERED: FERRIC SUBSULFATE 8 GM VIAL ONE (19:34)
[2020-02-05] MEDS ORDERED: CARBOPROST TROMETHAMINE 250 MCG/ML AMPUL ONE (19:41)
--- NOTE | 2020-02-05 19:44 | Anesthesiology Consultation ---
Date of Service February 05, 2020 Assessment & Plan (1) Encounter for pre-operative examination: Chart Review Chart Review: Acceptable Risk for Surgery (Urgent) History Surgery Operation Date: 02/05/20 19:10 Proposed Procedures p Dilation and Evacuation - Alex Rossi MD Height/Weight Height: 5 ft 2 in Weight: 40.6 kg Allergies Allergy/AdvReac Type Severity Reaction Status Date / Time fire ant Allergy Intermediate Hives Verified 02/05/20 19:19 Sulfa (Sulfonamide Allergy Unknown HIVES Verified 02/05/20 19:19 Antibiotics) Medications Home Medications Medication Instructions Recorded Confirmed Last Taken No Known Home Medications 02/05/20 02/05/20 Unknown Past Medical History Medical History Anxiety History of HPV infection Hx of herpes simplex infection Raynauds disease Rolandic epilepsy Past Surgical History Surgical History History of delivery Social History Smoking Status: Former smoker Hx Alcohol Use: No Hx Substance Use: No Physical Exam Vital Signs Last Vital Signs Temp 37.4 C 02/05/20 18:20 Pulse 108 H 02/05/20 18:20 Resp 17 02/05/20 18:20 BP 129/94 02/05/20 19:00 Pulse Ox 98 02/05/20 19:00 Testing Laboratory Results 02/05/20 18:11 02/05/20 18:11 PT 11.6 Seconds (9.0-12.0) 02/05/20 18:11 INR 1.1 (0.9-1.1) 02/05/20 18:11 APTT 28.0 Seconds (21.0-31.0) 02/05/20 18:11
[2020-02-05] MEDS ORDERED: MIDAZOLAM HCL 1 MG/ML 2ML VIAL ONE (19:45)
[2020-02-05] MEDS ORDERED: fentaNYL citrate 100 MCG/2 ML VIAL ONE (19:45)
[2020-02-05] MEDS ORDERED: ATROPINE SULFATE 0.1 MG/ML 10ML SYR IV PRN (19:54)
[2020-02-05] MEDS ORDERED: fentaNYL citrate 100 MCG/2 ML VIAL IV PRN (19:54)
[2020-02-05] MEDS ORDERED: ONDANSETRON INJ 2 MG/ML 2 ML VIAL IV PRN (19:54)
[2020-02-05] MEDS ORDERED: oxyCODONE/ACETAMINOPHEN 5mg/325mg TAB PO PRN ×2 (20:41)
[2020-02-05] MEDS ORDERED: MoRPHine SULFATE 4 MG/ML 1 ML CARP\\VIAL IV PRN (20:41)
[2020-02-05] MEDS ORDERED: KETOROLAC TROMETHAMINE 15 MG/ML VIAL IV PRN (20:41)
[2020-02-05] MEDS ORDERED: IBUPROFEN 600 MG TAB PO PRN (20:41)
[2020-02-05] MEDS ORDERED: MoRPHine SULFATE 2 MG/ML CARP IV PRN (20:41)
--- NOTE | 2020-02-05 20:41 | Post Operative Brief Note ---
Immediate Post Op Note v1 Date of Surgery February 05, 2020 Pre & Post Diagnosis Operation Date: 02/05/20 19:10 <No data on this case meets the specified criteria> I identified the patient and participated in the time-out.: Yes Procedure Operation Date: 02/05/20 19:10 Actual Procedures p Dilation and Evacuation(Not Applicable) - Alex Rossi MD Surgeon Alex Rossi MD Sanipractic Physician OR nurse Estimated Blood Loss 400 Findings Consistent with Post-Op Diagnosis Anesthesia Type General Complications none Disposition Disposition: Surgical ICU
[2020-02-05] MEDS ORDERED: LIDOCAINE HCL 2% 2 ML VIAL/AMP(20MG/ML) INFIL ONE (20:46)
[2020-02-05] MEDS ORDERED: METOCLOPRAMIDE HCL INJ 5 MG/ML 2 ML VIAL ONE (20:46)
[2020-02-05] MEDS ORDERED: PROPOFOL IV EMULSION 10 MG/ML 20 ML VIAL IV ONE (20:46)
[2020-02-05] MEDS ORDERED: ONDANSETRON INJ 2 MG/ML 2 ML VIAL ONE (20:47)
--- NOTE | 2020-02-05 20:54 | Ultrasound Report ---
US guide intraoperative (NO CHARGE) CLINICAL HISTORY: Dilatation and evacuation COMPARISON STUDY: No previous studies for comparison. FINDINGS: Intraoperative guidance was provided by the nuclear cardiology technologist. There was no radiologi st input. IMPRESSION: Intraoperative ultrasound guidance provided by the nuclear cardiology technologist. ACT 112: Negative or not required by law. Electronically signed by: Emil Govea M.D. 02/05/2020 8:53 PM
[2020-02-05] MEDS ORDERED: LACTATED RINGER'S 1,000 ML IV SCH (21:00)
--- NOTE | 2020-02-05 21:14 | Anesthesiology Progress Note ---
Date of Service February 05, 2020 Anesthesia Post Procedure Vital Signs Vital Signs: Temp Pulse Pulse Resp BP BP Pulse Ox 02/05/20 21:10 86 16 100/70 98 02/05/20 21:00 86 16 100/70 98 02/05/20 20:51 36.7 C 108 H 16 109/77 100 02/05/20 19:54 116 H 14 122/88 98 02/05/20 19:00 129/94 98 02/05/20 18:50 100 02/05/20 18:40 100 02/05/20 18:30 100 02/05/20 18:20 37.4 C 108 H 17 145/85 H 99 02/05/20 18:18 109 H 18 99 02/05/20 18:16 94 H 14 133/104 H 99 02/05/20 17:55 109 H 17 145/85 H 100 Pain Intensity Lower Abdomen: Pain Intensity: 2 Transfer of Care Handoff Completed per policy Notes Mental Status: alert / awake / arousable Patient Amnestic to Procedure: Yes Nausea / Vomiting: adequately controlled Pain: adequately controlled Airway Patency, RR, SpO2: stable & adequate BP & HR: stable & adequate Hydration State: stable & adequate Anesthetic Complications: no major complications apparent
--- NOTE | 2020-02-05 21:18 | Operative Report (OR) ---
DATE OF OPERATION: 02/05/2020 PREOPERATIVE DIAGNOSES: The patient is a 24-year-old G2, P1-1-0-1 who is status post vaginal delivery for demise at 17 weeks on 01/18/2020, presenting with active heavy vaginal bleeding suggesting retained products of conception. POSTOPERATIVE DIAGNOSIS: The patient is a 24-year-old G2, P1-1-0-1 who is status post vaginal delivery for demise at 17 weeks on 01/18/2020, presenting with active heavy vaginal bleeding suggesting retained products of conception. PROCEDURE: Exam under anesthesia, suction dilatation and curettage under ultrasound guidance. SURGEON: Alex Rossi MD NONPROFIT FUNDRAISER: OR nurse, Bambi Lara. ESTIMATED BLOOD LOSS: 400. FLUIDS: 1600 mL of lactated ringer. ANESTHESIA: General LMA. ANESTHESIOLOGIST: Dr. Devine.. COMPLICATIONS: None. FINDINGS: Exam under anesthesia revealed cervix 1 cm dilated with active heavy bleeding. Uterus is anteverted 8-week size, nonpalpable adnexa. DESCRIPTION OF PROCEDURE: The patient was taken to the operating room where general anesthesia was given without difficulty. She was placed in dorsal lithotomy position, prepared and draped in usual sterile fashion. Examination under anesthesia was done with above findings. Ultrasound was done and there noted to be heterogeneous material in the endometrial cavity suggesting retained products of conception and then a speculum was placed in the patient's vagina. Cervix was visualized, grasped with single tooth tenaculum. Cervical os was already opened and passing clots. It was dilated until #8. Uterus was found to be 11 cm and then under ultrasound guidance, an 8 mm suction tip was introduced from cervix and uterine cavity was suctioned and twisted in a clockwise direction and white tissue suggesting products of conception were retrieved. The suction was repeated again and no more tissues were coming and then a small sharp curette was used to curette in the uterine cavity under ultrasound guidance. Uterine sanon were curetted until uterine cry sensation was felt in all quadrants. No tissues were coming and uterus confirmed to be empty with US which showed thin endometrial lining and procedure was ended. All instruments were removed from patient's vagina. A bimanual exam was repeated. Uterus was firm and smaller and she was given IV oxytocin and IM Methergine and rectal Cytotec. Her bleeding stopped after the procedure. The patient tolerated the procedure well. Sponge, lap, needle count was correct x2. She was taken off from lithotomy position, cleaned and dried, taken to recovery room in stable condition and no complications happened. I was present during whole procedure, she received 2 grams of cefazolin before surgery. I attest to the content of the Intraoperative Record and any orders documented therein. Any exceptions are noted below. ANGELA
[2020-02-05] MEDS ORDERED: METHYLERGONOVINE MALEATE 0.2 MG TAB PO SCH (22:00)
[2020-02-05 22:24] LABS: Basophils # (auto) 0.02 K/uL (0-0.2); Basophils % (auto) 0.2 %; Eosinophils # (auto) 0.14 K/uL (0-0.5); Eosinophils % (auto) 1.6 %; Hematocrit (blood only) 31.8 % (37-47); Hemoglobin 10.5 g/dL (12.0-16.0); Immature Granulocytes # (auto) 0.03 K/uL (0.00-0.02); Immature Granulocytes % (auto) 0.3 %; Lymphocytes # (auto) 2.12 K/uL (1.2-3.4); Lymphocytes % (auto) 23.7 %; Mean Platelet Volume 10.9 fL (7.4-10.4); Monocytes # (auto) 0.53 K/uL (0.11-0.59); Monocytes % (auto) 5.9 %; Neutrophils % (auto) 68.3 %; Platelet Count 342 K/uL (130-400); RDW Coefficient of Variation 12.2 % (11.5-14.5); RDW Standard Deviation 43.6 fL (36.4-46.3); Red Blood Count 3.28 M/uL (4.2-5.4); White Blood Count 8.94 K/uL (4.8-10.8)
[2020-02-05] MEDS ORDERED: OR MISCELLANEOUS MED ONE (23:41)
[2020-02-05] MEDS ORDERED: AMOXICILLIN/CLAVULANATE 875 MG TAB PO ONE (23:42)
--- NOTE | 2020-02-05 23:44 | Obstetrical Progress Note ---
Date of Service February 05, 2020 Assessment & Plan Admission and Anticipated Discharge Date Admission Date: February 05, 2020 Subjective Postop check Patient is seen and examined Feels well, no complaints Desires to be discharged No Pain No CP/ SOB/ Dizziness/ N&V/ VB/ Leg pain OOB to BR, voided without problems Tolerating clears Explained about the surgery and findings Vital Signs Temp Pulse Pulse Pulse Resp BP BP 02/05/20 23:10 36.9 C 76 16 108/76 02/05/20 22:34 78 16 123/80 02/05/20 22:00 77 16 119/79 02/05/20 21:39 36.9 C 84 16 112/81 02/05/20 21:20 36.6 C 91 H 14 110/74 02/05/20 21:10 86 16 100/70 02/05/20 21:00 86 16 100/70 02/05/20 20:51 36.7 C 108 H 16 109/77 02/05/20 19:54 116 H 14 122/88 02/05/20 19:00 129/94 02/05/20 18:50 02/05/20 18:40 02/05/20 18:30 02/05/20 18:20 37.4 C 108 H 17 145/85 H 02/05/20 18:18 109 H 18 02/05/20 18:16 94 H 14 133/104 H 02/05/20 17:55 109 H 17 145/85 H Pulse Ox 02/05/20 23:10 99 02/05/20 22:34 96 02/05/20 22:00 99 02/05/20 21:39 100 02/05/20 21:20 97 02/05/20 21:10 98 02/05/20 21:00 98 02/05/20 20:51 100 02/05/20 19:54 98 02/05/20 19:00 98 02/05/20 18:50 100 02/05/20 18:40 100 02/05/20 18:30 100 02/05/20 18:20 99 02/05/20 18:18 99 02/05/20 18:16 99 02/05/20 17:55 100 Lab Results 02/05/20 02/05/20 02/05/20 Range/Units 18:11 18:11 18:11 WBC 8.09 (4.8-10.8) K/uL RBC 3.59 L (4.2-5.4) M/uL Hgb 11.5 L (12.0-16.0) g/dL Hct 34.8 L (37-47) % MCV 96.9 (80-100) fL MCH 32.0 (25-34) pg MCHC 33.0 (32-36) g/dL RDW Std Deviation 43.6 (36.4-46.3) fL RDW Coeff of Steve 12.2 (11.5-14.5) % Plt Count 401 H (130-400) K/uL MPV 11.4 H (7.4-10.4) fL Immature Gran % (Auto) % Neut % (Auto) % Lymph % (Auto) % Wirt % (Auto) % Eos % (Auto) % Baso % (Auto) % Neut # (Auto) (1.4-6.5) K/uL Lymph # (Auto) (1.2-3.4) K/uL Wirt # (Auto) (0.11-0.59) K/uL Eos # (Auto) (0-0.5) K/uL Baso # (Auto) (0-0.2) K/uL Immature Gran # (Auto) (0.00-0.02) K/uL PT 11.6 (9.0-12.0) Seconds INR 1.1 (0.9-1.1) APTT 28.0 (21.0-31.0) Seconds PTT Ratio 1.0 Sodium (136-145) mmol/L Potassium (3.5-5.1) mmol/L Chloride (98-107) mmol/L Carbon Dioxide (21-32) mmol/L Anion Gap (3-11) BUN (7-18) mg/dl Creatinine (0.6-1.2) mg/dl Est Cr Clr Drug Dosing ml/min Est GFR ( Amer) Est GFR (Non-Af Amer) BUN/Creatinine Ratio (10-20) Glucose (70-99) mg/dl Calcium (8.5-10.1) mg/dl COVID-19 Eval Order SARS-CoV-2, RNA, NAAT (NEGATIVE) Blood Type A Positive Antibody Screen POSITIVE A Antibody Identification Anti-c Antigen Identification c Antigen - NEGATIVE Crossmatch See Detail 02/05/20 02/05/20 02/05/20 Range/Units 18:11 19:25 19:25 WBC (4.8-10.8) K/uL RBC (4.2-5.4) M/uL Hgb (12.0-16.0) g/dL Hct (37-47) % MCV (80-100) fL MCH (25-34) pg MCHC (32-36) g/dL RDW Std Deviation (36.4-46.3) fL RDW Coeff of Steve (11.5-14.5) % Plt Count (130-400) K/uL MPV (7.4-10.4) fL Immature Gran % (Auto) % Neut % (Auto) % Lymph % (Auto) % Wirt % (Auto) % Eos % (Auto) % Baso % (Auto) % Neut # (Auto) (1.4-6.5) K/uL Lymph # (Auto) (1.2-3.4) K/uL Wirt # (Auto) (0.11-0.59) K/uL Eos # (Auto) (0-0.5) K/uL Baso # (Auto) (0-0.2) K/uL Immature Gran # (Auto) (0.00-0.02) K/uL PT (9.0-12.0) Seconds INR (0.9-1.1) APTT (21.0-31.0) Seconds PTT Ratio Sodium 139 (136-145) mmol/L Potassium 3.7 (3.5-5.1) mmol/L Chloride 111 H (98-107) mmol/L Carbon Dioxide 23 (21-32) mmol/L Anion Gap 5.0 (3-11) BUN 12 (7-18) mg/dl Creatinine 0.66 (0.6-1.2) mg/dl Est Cr Clr Drug Dosing 82.8 ml/min Est GFR ( Amer) 141.3 Est GFR (Non-Af Amer) 121.9 BUN/Creatinine Ratio 18.5 (10-20) Glucose 107 H (70-99) mg/dl Calcium 8.7 (8.5-10.1) mg/dl COVID-19 Eval [facility] SARS-CoV-2, RNA, NAAT NEGATIVE (NEGATIVE) Blood Type Antibody Screen Antibody Identification Antigen Identification Crossmatch 02/05/20 Range/Units 22:20 WBC 8.94 (4.8-10.8) K/uL RBC 3.28 L (4.2-5.4) M/uL Hgb 10.5 L (12.0-16.0) g/dL Hct 31.8 L (37-47) % MCV 97.0 (80-100) fL MCH 32.0 (25-34) pg MCHC 33.0 (32-36) g/dL RDW Std Deviation 43.6 (36.4-46.3) fL RDW Coeff of Steve 12.2 (11.5-14.5) % Plt Count 342 (130-400) K/uL MPV 10.9 H (7.4-10.4) fL Immature Gran % (Auto) 0.3 % Neut % (Auto) 68.3 % Lymph % (Auto) 23.7 % Wirt % (Auto) 5.9 % Eos % (Auto) 1.6 % Baso % (Auto) 0.2 % Neut # (Auto) 6.10 (1.4-6.5) K/uL Lymph # (Auto) 2.12 (1.2-3.4) K/uL Wirt # (Auto) 0.53 (0.11-0.59) K/uL Eos # (Auto) 0.14 (0-0.5) K/uL Baso # (Auto) 0.02 (0-0.2) K/uL Immature Gran # (Auto) 0.03 H (0.00-0.02) K/uL PT (9.0-12.0) Seconds INR (0.9-1.1) APTT (21.0-31.0) Seconds PTT Ratio Sodium (136-145) mmol/L Potassium (3.5-5.1) mmol/L Chloride (98-107) mmol/L Carbon Dioxide (21-32) mmol/L Anion Gap (3-11) BUN (7-18) mg/dl Creatinine (0.6-1.2) mg/dl Est Cr Clr Drug Dosing ml/min Est GFR ( Amer) Est GFR (Non-Af Amer) BUN/Creatinine Ratio (10-20) Glucose (70-99) mg/dl Calcium (8.5-10.1) mg/dl COVID-19 Eval Order SARS-CoV-2, RNA, NAAT (NEGATIVE) Blood Type Antibody Screen Antibody Identification Antigen Identification Crossmatch PE: General: Alert, orientedx3, NAD CVS: S1S2 RRR Lungs: CTAB Abd: soft, NT, ND, BS+, VB light Ext: NT, no edema, SCD's on AP: 24 yo female s/p EUA Suction, D&C , pod#0 VSS Afebrile doing well Continue to routine postop care Encourage PO intake, may ambulate D/C home with methergine and augmentin F/U in office Results & Data ([facility]) Vital Signs (Past 12 Hours) Vital Signs Temp Pulse Pulse Pulse Resp BP BP 02/05/20 23:10 36.9 C 76 16 108/76 02/05/20 22:34 78 16 123/80 02/05/20 22:00 77 16 119/79 02/05/20 21:39 36.9 C 84 16 112/81 02/05/20 21:20 36.6 C 91 H 14 110/74 02/05/20 21:10 86 16 100/70 02/05/20 21:00 86 16 100/70 02/05/20 20:51 36.7 C 108 H 16 109/77 02/05/20 19:54 116 H 14 122/88 02/05/20 19:00 129/94 02/05/20 18:50 02/05/20 18:40 02/05/20 18:30 02/05/20 18:20 37.4 C 108 H 17 145/85 H 02/05/20 18:18 109 H 18 02/05/20 18:16 94 H 14 133/104 H 02/05/20 17:55 109 H 17 145/85 H Pulse Ox 02/05/20 23:10 99 02/05/20 22:34 96 02/05/20 22:00 99 02/05/20 21:39 100 02/05/20 21:20 97 02/05/20 21:10 98 02/05/20 21:00 98 02/05/20 20:51 100 02/05/20 19:54 98 11/05/20 19:00 98 02/05/20 18:50 100 02/05/20 18:40 100 02/05/20 18:30 100 02/05/20 18:20 99 02/05/20 18:18 99 02/05/20 18:16 99 02/05/20 17:55 100
[2020-02-05] MEDS ORDERED: METHYLERGONOVINE MALEATE 0.2 MG TAB PO ONE (23:45)
== END 2020-02-06 00:40 | disposition home or self-care (01) ==
LOC: ED 17:45 → 4N 19:54 → OR 19:54

== ENCOUNTER 2022-03-21 11:49 | Inpatient (IN) ==
--- NOTE | 2022-03-21 13:57 | Progress Note ---
Date of Service March 21, 2022 Assessment & Plan (1) labor in third trimester with delivery: Plan 26yo at 36+ weeks gestation s/p cerclage placement by MFM for hx of PTD Cerclage is removed after consent is obtained moderate bleeding after cerclage is removed with mehrdad. scissors Bleeding is stabilized with presure will monitor pt for bleeding Monitor FH and ctx as well Results & Data ([place]) Vital Signs (Past 12 Hours) Vital Signs Temp Pulse Resp BP Pulse Ox 03/21/22 12:22 36.5 C 20 03/21/22 13:48 99 03/21/22 13:48 85 03/21/22 13:47 90 03/21/22 13:47 81 03/21/22 13:47 153/66 H 03/21/22 13:43 99 03/21/22 13:43 98 H 03/21/22 13:38 100 03/21/22 13:38 91 H 03/21/22 13:33 100 03/21/22 13:33 124 H 03/21/22 13:28 100 03/21/22 13:28 144 H 03/21/22 13:23 100 03/21/22 13:23 91 H 03/21/22 13:18 98 03/21/22 13:18 94 H 03/21/22 13:16 111 H 03/21/22 13:16 113/82 03/21/22 13:13 97 03/21/22 13:13 93 H 03/21/22 13:08 97 03/21/22 13:08 114 H 03/21/22 13:03 98 03/21/22 13:03 90 03/21/22 13:01 118 H 03/21/22 13:01 116/84 03/21/22 12:58 96 03/21/22 12:58 120 H 03/21/22 12:53 97 03/21/22 12:53 127 H 03/21/22 12:48 97 03/21/22 12:48 91 H 03/21/22 12:46 125 H 03/21/22 12:46 117/86 03/21/22 12:43 97 03/21/22 12:43 94 H 03/21/22 12:38 97 03/21/22 12:38 121 H 03/21/22 12:33 98 03/21/22 12:33 110 H 03/21/22 12:30 114 H 03/21/22 12:30 122/90 03/21/22 12:20 98 H 03/21/22 12:20 118/88 03/21/22 12:08 20 03/21/22 12:08 36.5 C 20 03/21/22 12:09 117 H 119/96
[2022-03-21] MEDS ORDERED: SODIUM CHLORIDE 0.9% 250 ML IV PRN (16:06)
--- NOTE | 2022-03-21 16:13 | Anesthesiology Consultation ---
Date of Service March 21, 2022 Assessment & Plan Chart Review Chart Review: Acceptable Risk for Surgery and Patient NOT seen in Pre Admission Testing Consults Requested none History Height/Weight Height: 5 ft 2 in Weight: 53.07 kg Allergies Allergy/AdvReac Type Severity Reaction Status Date / Time fire ant Allergy Intermediate Hives Verified 03/21/22 08:59 Sulfa (Sulfonamide Allergy Unknown HIVES Verified 03/21/22 08:59 Antibiotics) Medications Home Medications Medication Instructions Recorded Confirmed Last Taken calcium carbonate 500 mg calcium 500 mg PO DAILY 11/03/21 03/21/22 03/20/22 21:00 (1,250 mg) chewable tablet (Calcium 500) vit no.95-ferrous 1 tab PO DAILY 01/20/22 03/21/22 03/20/22 21:00 fumarate 28 mg-folic acid 800 mcg tablet () levothyroxine 25 mcg tablet 25 mcg PO DAILY #30 tabs 01/24/22 03/21/22 03/21/22 07:45 Past Medical History Medical History Anorexia Anorexia in past Anxiety Cervical shortening affecting cerclage placed in October Common migraine Depression since high school; no meds or therapy GERD (gastroesophageal reflux disease) History of HPV infection Hx of herpes simplex infection Hx of lipoma Hypothyroidism dx in January Palpitations will get evaluated after delivery Raynauds disease 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12 Tachycardia Vaginal bleeding Past Family History Family History Grandmother (Maternal) Breast cancer Hypertension Mother Heart disease Asthma Denies family history of Ovarian cancer Prostate cancer Myocardial infarction Lung cancer Colorectal cancer Stroke Past Surgical History Surgical History History of delivery Hx of section Status post vaginal delivery Social History Smoking Status: Former smoker Smoking End Date: 2016 Hx Alcohol Use: No Hx Substance Use: No substance use type: does not use Physical Exam Vital Signs Last Vital Signs Temp 97.7 F 03/21/22 12:22 Pulse 106 H 03/21/22 16:08 Resp 20 03/21/22 12:22 BP 128/83 03/21/22 16:01 Pulse Ox 100 03/21/22 16:08
--- NOTE | 2022-03-21 16:20 | Progress Note ---
Date of Service March 21, 2022 Subjective PT has increase ctx FHR ; CAT1 bleeding is still present offered pt c/sec and tubal as planned consent obtained risk of surgery discussed Results & Data ([facility]) Vital Signs (Past 12 Hours) Vital Signs Temp Pulse Resp BP Pulse Ox 03/21/22 12:22 36.5 C 20 03/21/22 16:08 100 03/21/22 16:08 106 H 03/21/22 16:03 99 03/21/22 16:03 121 H 03/21/22 16:01 110 H 03/21/22 16:01 128/83 03/21/22 15:58 97 03/21/22 15:58 116 H 03/21/22 15:53 99 03/21/22 15:53 120 H 03/21/22 15:48 100 03/21/22 15:48 111 H 03/21/22 15:47 86 03/21/22 15:47 126/82 03/21/22 15:43 100 03/21/22 15:43 99 H 03/21/22 15:38 99 03/21/22 15:38 122 H 03/21/22 15:33 100 03/21/22 15:33 98 H 03/21/22 15:31 109 H 03/21/22 15:31 139/100 03/21/22 15:28 98 03/21/22 15:28 101 H 03/21/22 15:23 98 03/21/22 15:23 98 H 03/21/22 15:18 98 03/21/22 15:18 127 H 03/21/22 15:16 96 H 03/21/22 15:16 125/89 03/21/22 15:13 98 03/21/22 15:13 127 H 03/21/22 15:08 97 03/21/22 15:08 110 H 03/21/22 15:03 97 03/21/22 15:03 111 H 03/21/22 15:01 96 H 03/21/22 15:01 123/88 03/21/22 14:58 97 03/21/22 14:58 120 H 03/21/22 14:53 99 03/21/22 14:53 97 H 03/21/22 14:48 98 03/21/22 14:48 93 H 03/21/22 14:46 117 H 03/21/22 14:46 117/87 03/21/22 14:43 96 03/21/22 14:43 124 H 03/21/22 14:38 99 03/21/22 14:38 96 H 03/21/22 14:33 98 03/21/22 14:33 124 H 03/21/22 14:31 114 H 03/21/22 14:31 118/92 03/21/22 14:28 98 03/21/22 14:28 80 03/21/22 14:23 99 03/21/22 14:23 93 H 03/21/22 14:18 98 03/21/22 14:18 95 H 03/21/22 14:17 94 H 03/21/22 14:17 119/92 03/21/22 14:13 99 03/21/22 14:13 93 H 03/21/22 14:08 99 03/21/22 14:08 91 H 03/21/22 14:03 100 03/21/22 14:03 103 H 03/21/22 14:02 93 H 03/21/22 14:02 130/90 03/21/22 13:58 98 03/21/22 13:58 85 03/21/22 13:53 98 03/21/22 13:53 81 03/21/22 13:48 99 03/21/22 13:48 85 03/21/22 13:47 90 03/21/22 13:47 81 03/21/22 13:47 153/66 H 03/21/22 13:43 99 03/21/22 13:43 98 H 03/21/22 13:38 100 03/21/22 13:38 91 H 03/21/22 13:33 100 03/21/22 13:33 124 H 03/21/22 13:28 100 03/21/22 13:28 144 H 03/21/22 13:23 100 03/21/22 13:23 91 H 03/21/22 13:18 98 03/21/22 13:18 94 H 03/21/22 13:16 111 H 03/21/22 13:16 113/82 03/21/22 13:13 97 03/21/22 13:13 93 H 03/21/22 13:08 97 03/21/22 13:08 114 H 03/21/22 13:03 98 03/21/22 13:03 90 03/21/22 13:01 118 H 03/21/22 13:01 116/84 03/21/22 12:58 96 03/21/22 12:58 120 H 03/21/22 12:53 97 03/21/22 12:53 127 H 03/21/22 12:48 97 03/21/22 12:48 91 H 03/21/22 12:46 125 H 03/21/22 12:46 117/86 03/21/22 12:43 97 03/21/22 12:43 94 H 03/21/22 12:38 97 03/21/22 12:38 121 H 03/21/22 12:33 98 03/21/22 12:33 110 H 03/21/22 12:30 114 H 03/21/22 12:30 122/90 03/21/22 12:20 98 H 03/21/22 12:20 118/88 03/21/22 12:08 20 03/21/22 12:08 36.5 C 20 03/21/22 12:09 117 H 119/96
[2022-03-21] MEDS ORDERED: MoRPHine SULFATE PF 1 MG/ML 10 ML AMP/VIAL ONE (16:21)
[2022-03-21] MEDS ORDERED: ONDANSETRON INJ 2 MG/ML 2 ML VIAL ONE (16:21)
[2022-03-21] MEDS ORDERED: PHENYLEPHRINE HCL 10 MG/ML VIAL ONE (16:21)
[2022-03-21] MEDS ORDERED: fentaNYL citrate 100 MCG/2 ML VIAL ONE (16:21)
[2022-03-21] MEDS ORDERED: CITRIC ACID/SODIUM CITRATE 15 ML UDC ONE (16:23)
[2022-03-21 16:37] LABS: Basophils # (auto) 0.02 K/uL (0-0.2); Basophils % (auto) 0.2 %; Eosinophils # (auto) 0.06 K/uL (0-0.50); Eosinophils % (auto) 0.5 %; Hematocrit (blood only) 37.6 % (34.1-44.9); Hemoglobin 13.1 g/dl (12.0-16.0); Immature Granulocytes # (auto) 0.06 K/uL (0.00-0.02); Immature Granulocytes % (auto) 0.5 %; Lymphocytes # (auto) 1.78 K/uL (1.2-3.4); Lymphocytes % (auto) 15.7 %; Mean Corpuscular Hgb Conc 34.8 g/dL (32.0-36.0); Mean Corpuscular Volume 91.7 fL (80.0-100.0); Mean Platelet Volume 12.4 fL (9.4-12.3); Monocytes # (auto) 0.82 K/uL (0.24-0.82); Monocytes % (auto) 7.2 %; Neutrophils # (auto) 8.58 K/uL (1.4-6.5); Neutrophils % (auto) 75.9 %; Platelet Count 297 K/uL (130-400); RDW Coefficient of Variation 13.6 % (11.5-14.5); White Blood Count 11.32 K/ul (4.8-10.8)
[2022-03-21] MEDS ORDERED: ceFAZolin 2000MG 2,000 MG/15 ML SYR IV SCH (16:45)
--- NOTE | 2022-03-21 16:45 | History & Physical Bridge Note ---
Date of Service March 21, 2022 History & Physical Bridge Note I have examined the patient, reviewed the History & Physical and in the interval since the performance of the History & Physical I have noted the following changes of clinical significance: no changes noted
[2022-03-21] MEDS: LACTATED RINGER'S 1,000 ML IV SCH (16:46)
[2022-03-21] MEDS ORDERED: PROMETHAZINE HCL IV PRN (17:20)
[2022-03-21] MEDS ORDERED: ONDANSETRON INJ 2 MG/ML 2 ML VIAL IV PRN (17:20)
[2022-03-21] MEDS ORDERED: ACETAMINOPHEN 1,000 MG/100 ML VIAL IV PRN (17:20)
[2022-03-21] MEDS ORDERED: diphenhydrAMINE 50 MG/ML VIAL IV PRN (17:20)
[2022-03-21] MEDS ORDERED: NALOXONE HCL 0.08 MG in SYRINGE 1.8 ML IV PRN (17:20)
[2022-03-21] MEDS ORDERED: ePHEDrine sulfate 50 MG/ML AMP IV PRN (17:20)
[2022-03-21] MEDS ORDERED: NALBUPHINE HCL INJ 10 MG/ML AMP IV PRN (17:20)
[2022-03-21] MEDS ORDERED: NALOXONE HCL 1 MG in SODIUM CHLORIDE 0.9% 1000ML 1,000 ML IV PRN (17:20)
[2022-03-21] MEDS ORDERED: MoRPHine SULFATE PF 1 MG/ML 10 ML AMP/VIAL INT SPINAL ONE (17:20)
[2022-03-21] MEDS ORDERED: NALOXONE HCL 0.4 MG/1 ML VIAL/CARP IV PRN (17:20)
[2022-03-21] MEDS ORDERED: LACTATED RINGER'S 500 ML IV PRN (17:20)
[2022-03-21] MEDS ORDERED: SODIUM CHLORIDE 0.9% IV PRN (17:20)
[2022-03-21] MEDS ORDERED: miSOPROStoL 200 MCG TAB ONE (17:24)
[2022-03-21] MEDS ORDERED: NO NARCOTICS OR SEDATIVES SCH (17:30)
[2022-03-21] MEDS ORDERED: SODIUM CHLORIDE 0.9% 1000ML 1,000 ML IV SCH (17:30)
[2022-03-21] MEDS ORDERED: DC INTRASPINAL MORPHINE SCH (17:30)
[2022-03-21] MEDS ORDERED: METHYLERGONOVINE MALEATE 0.2 MG/ML AMP ONE (18:15)
[2022-03-21] MEDS ORDERED: KETOROLAC 30 MG/ML VIAL ONE (18:16)
[2022-03-21] MEDS ORDERED: SENNA 8.6 MG TAB PO PRN (18:28)
[2022-03-21] MEDS ORDERED: DIPHTHERIA/TETANUS/PERTUSSIS 0.5 ML SYR/VIAL IM ONE (18:28)
[2022-03-21] MEDS ORDERED: BENZOCAINE 20% AER SPR 82.5 GM CAN EXT PRN (18:28)
[2022-03-21] MEDS ORDERED: HYDROCORTISONE ACETATE 25 MG SUPP PR PRN (18:28)
[2022-03-21] MEDS ORDERED: MAGNESIUM HYDROXIDE SUSP 30 ML UDC PO PRN (18:28)
[2022-03-21] MEDS ORDERED: LACTATED RINGER'S 1,000 ML IV SCH (18:30)
[2022-03-21] MEDS ORDERED: OXYTOCIN 20 UNITS in LACTATED RINGER'S 1,000 ML IV SCH (18:30)
[2022-03-21] MEDS ORDERED: OXYTOCIN 10 UNITS/ML 10ML VIAL IM ONE (18:41)
[2022-03-21] MEDS ORDERED: miSOPROStoL 200 MCG TAB PV ONE (18:41)
--- NOTE | 2022-03-21 19:08 | Anesthesiology Progress Note ---
Date of Service March 21, 2022 Anesthesia Post Procedure Vital Signs Vital Signs: Temp Pulse Resp BP Pulse Ox 03/21/22 12:22 97.7 F 20 03/21/22 19:02 99 20 19:02 161 H 03/21/22 19:03 155 H 2022 19:03 118/63 03/21/22 18:57 98 2022 18:57 156 H 03/21/22 18:52 100 20 18:52 163 H 03/21/22 18:53 164 H 20 18:53 109/63 03/21/22 18:47 96 03/21/22 18:47 161 H 03/21/22 18:44 92 03/21/22 18:44 168 H 03/21/22 18:42 100 03/21/22 18:42 161 H 03/21/22 18:43 166 H 03/21/22 18:43 121/71 03/21/22 18:37 100 03/21/22 18:37 144 H 03/21/22 18:32 92 03/21/22 18:32 150 H 03/21/22 18:33 137 H 03/21/22 18:33 116/65 03/21/22 18:30 91 03/21/22 18:30 126 H 03/21/22 18:27 100 03/21/22 18:27 130 H 03/21/22 18:27 119/58 L 03/21/22 18:22 100 03/21/22 18:22 117 H 03/21/22 16:08 100 03/21/22 16:08 106 H 03/21/22 16:03 99 03/21/22 16:03 121 H 03/21/22 16:01 110 H 20 16:01 128/83 03/21/22 15:58 97 03/21/22 15:58 116 H 03/21/22 15:53 99 03/21/22 15:53 120 H 22 15:48 100 22 15:48 111 H 03/21/22 15:47 86 20 15:47 126/82 03/21/22 15:43 100 03/21/22 15:43 99 H 03/21/22 15:38 99 03/21/22 15:38 122 H 03/21/22 15:33 100 03/21/22 15:33 98 H 03/21/22 15:31 109 H 03/21/22 15:31 139/100 03/21/22 15:28 98 03/21/22 15:28 101 H 03/21/22 15:23 98 03/21/22 15:23 98 H 03/21/22 15:18 98 03/21/22 15:18 127 H 03/21/22 15:16 96 H 03/21/22 15:16 125/89 03/21/22 15:13 98 03/21/22 15:13 127 H 03/21/22 15:08 97 03/21/22 15:08 110 H 03/21/22 15:03 97 03/21/22 15:03 111 H 03/21/22 15:01 96 H 03/21/22 15:01 123/88 03/21/22 14:58 97 03/21/22 14:58 120 H 03/21/22 14:53 99 03/21/22 14:53 97 H 03/21/22 14:48 98 03/21/22 14:48 93 H 03/21/22 14:46 117 H 03/21/22 14:46 117/87 03/21/22 14:43 96 03/21/22 14:43 124 H 03/21/22 14:38 99 03/21/22 14:38 96 H 03/21/22 14:33 98 03/21/22 14:33 124 H 03/21/22 14:31 114 H 03/21/22 14:31 118/92 03/21/22 14:28 98 03/21/22 14:28 80 03/21/22 14:23 99 03/21/22 14:23 93 H 03/21/22 14:18 98 03/21/22 14:18 95 H 03/21/22 14:17 94 H 03/21/22 14:17 119/92 03/21/22 14:13 99 03/21/22 14:13 93 H 03/21/22 14:08 99 03/21/22 14:08 91 H 03/21/22 14:03 100 03/21/22 14:03 103 H 03/21/22 14:02 93 H 03/21/22 14:02 130/90 03/21/22 13:58 98 03/21/22 13:58 85 03/21/22 13:53 98 03/21/22 13:53 81 03/21/22 13:48 99 03/21/22 13:48 85 03/21/22 13:47 90 03/21/22 13:47 81 03/21/22 13:47 153/66 H 03/21/22 13:43 99 03/21/22 13:43 98 H 03/21/22 13:38 100 03/21/22 13:38 91 H 03/21/22 13:33 100 03/21/22 13:33 124 H 03/21/22 13:28 100 03/21/22 13:28 144 H 03/21/22 13:23 100 03/21/22 13:23 91 H 03/21/22 13:18 98 03/21/22 13:18 94 H 03/21/22 13:16 111 H 03/21/22 13:16 113/82 03/21/22 13:13 97 03/21/22 13:13 93 H 03/21/22 13:08 97 03/21/22 13:08 114 H 03/21/22 13:03 98 03/21/22 13:03 90 03/21/22 13:01 118 H 03/21/22 13:01 116/84 03/21/22 12:58 96 03/21/22 12:58 120 H 03/21/22 12:53 97 03/21/22 12:53 127 H 03/21/22 12:48 97 03/21/22 12:48 91 H 03/21/22 12:46 125 H 03/21/22 12:46 117/86 03/21/22 12:43 97 03/21/22 12:43 94 H 03/21/22 12:38 97 03/21/22 12:38 121 H 03/21/22 12:33 98 03/21/22 12:33 110 H 03/21/22 12:30 114 H 03/21/22 12:30 122/90 03/21/22 12:20 98 H 03/21/22 12:20 118/88 03/21/22 12:08 03/21/22 12:08 97.7 F 03/21/22 12:09 117 H 119/96 Transfer of Care Handoff Completed per policy Notes Mental Status: alert / awake / arousable and participated in evaluation Patient Amnestic to Procedure: Yes Nausea / Vomiting: adequately controlled Pain: adequately controlled Airway Patency, RR, SpO2: stable & adequate BP & HR: stable & adequate Hydration State: stable & adequate Neuraxial Anesthesia: was administered and sensory block is resolving Anesthetic Complications: no major complications apparent and Pt Satisfied with anesthetic care
[2022-03-21] MEDS ORDERED: KETOROLAC 30 MG/ML VIAL IV PRN (22:25)
[2022-03-21] MEDS: SIMETHICONE 80 MG CHEW PO SCH (22:48)
[2022-03-21] MEDS: DOCUSATE SODIUM 100 MG CAP PO SCH (22:49)
[2022-03-21] MEDS: KETOROLAC 30 MG/ML VIAL IV PRN (23:42)
[2022-03-22] MEDS: LACTATED RINGER'S 1,000 ML IV SCH ×2 (00:16→05:36)
[2022-03-22] MEDS: KETOROLAC 30 MG/ML VIAL IV PRN (05:35)
[2022-03-22] MEDS ORDERED: CITRIC ACID/SODIUM CITRATE 15 ML UDC PO SCH (06:00)
[2022-03-22] MEDS ORDERED: ceFAZolin 2000MG 2,000 MG/15 ML SYR IV SCH (06:00)
[2022-03-22 06:43] LABS: Hematocrit (blood only) 23.4 % (34.1-44.9); Mean Corpuscular Hgb Conc 34.2 g/dL (32.0-36.0); Mean Corpuscular Volume 93.6 fL (80.0-100.0); Mean Platelet Volume 12.5 fL (9.4-12.3); Platelet Count 169 K/uL (130-400); RDW Coefficient of Variation 13.7 % (11.5-14.5); RDW Standard Deviation 46.3 fL (36.4-46.3); White Blood Count 11.18 K/ul (4.8-10.8)
[2022-03-22 06:48] LABS: Basophils # (auto) 0.01 K/uL (0-0.2); Basophils % (auto) 0.1 %; Eosinophils # (auto) 0.06 K/uL (0-0.50); Eosinophils % (auto) 0.5 %; Immature Granulocytes # (auto) 0.05 K/uL (0.00-0.02); Immature Granulocytes % (auto) 0.4 %; Lymphocytes % (auto) 15.2 %; Monocytes # (auto) 1.34 K/uL (0.24-0.82); Neutrophils # (auto) 8.02 K/uL (1.4-6.5); Neutrophils % (auto) 71.8 %
--- NOTE | 2022-03-22 07:57 | Operative Report (OR) ---
DATE OF PROCEDURE: 03/21/2022. INDICATION FOR SURGERY: This is a 26-year-old G3, P1 at 36 plus weeks, who presented to [facility] for cerclage removal. Cerclage was removed. The patient began to have significant bleeding w ith contractions. Decision was therefore made to perform section. She was scheduled for ce sarean section in 3 weeks. PREOPERATIVE DIAGNOSES: 1. at 36 plus weeks. 2. History of delivery cerclage placement in this , which was removed today. 3. Previous section, wishes to have repeat . 4. Undesired fertility, wishes to have permanent sterilization. POSTOPERATIVE DIAGNOSES: 1. at 36 plus weeks. 2. History of delivery cerclage placement in this , which was removed today. 3. Previous section, wishes to have repeat . 4. Undesired fertility, wishes to have permanent sterilization. SURGEON: Jd Young MD. CLOTH SHEARING SUPERVISOR: Doreen Wall RN. OPERATION: Repeat section and bilateral tubal removal. ANESTHESIA: Spinal. DRAINS: None. ESTIMATED BLOOD LOSS: 500 mL. INTRAVENOUS FLUIDS: 1400 mL. URINE OUTPUT: 200 mL of clear urine at the end of the procedure. SPECIMENS: Placenta, cord blood, cord gas. INTRAOPERATIVE COMPLICATIONS: None. PATIENT CONDITION: Stable. DISPOSITION: Postanesthesia care unit. ATTESTATION: I performed the entire procedure. FINDINGS: Normal female escutcheon. The uterus appeared grossly normal, so did the fallopian tubes a nd ovaries. was delivered in a cephalic presentation and handed over to the pediatric team. Details of infant's information are in the pediatric record. DESCRIPTION OF PROCEDURE: The patient was taken to the operating room where she was prepped and drap ed in a normal sterile fashion. A Pfannenstiel incision was made and carried down to the fascia. Fa scia was incised in the midline and extended laterally on both sides. Fascia was sharply dissected o ff the rectus abdominis muscle superiorly and inferiorly. Peritoneum was identified and entered constance ply. Once inside the abdomen, an Jeanmarie retractor was placed for retraction. A low transverse incis ion was made on the uterus and extended laterally on both sides. Infant's head was delivered. There was a nuchal cord, which was easily reduced. was delivered. Delayed cord clamp was performdorie castillo. was handed over to the waiting pediatric team. Information about the infant is in the ped iatric record. Cord gas and cord blood were obtained. Placenta was manually removed and sent to [facility] for pathological analysis. Uterus was exteriorized and cleared of all clots and debris. Uter us was closed in 2 layers with Vicryl stitch. The patient wanted tubal ligation. So the left fallopian tube was identified and followed to the [facility] end and transected with electrocautery. Both tubes were also sent to pathology for pathologic al analysis. Copious amount of irrigation was used to irrigate the abdomen. The uterus was returned to the abdomi nal cavity. The peritoneum was reapproximated with plain suture. Rectus abdominis muscle was reappr oximated with a plain suture using [id number] closure. Fascia was closed in a running fashion w ith Vicryl stitch. Subcutaneous space was closed in a running fashion with a plain suture. Skin was closed with [place]. All instruments were removed from the abdomen and accounted for x2 including sponges, needles, and re tractors. The patient was put in frog leg position. The vagina was examined, which showed that there was no si gnificant bleeding from the cerclage removal. Inspection of the vagina showed a thick, non-effaced c ervix. There was good hemostasis from the removal of the cerclage. The patient was sent to recovery in stable condition. Job ID: [id number]
[2022-03-22] MEDS: FERROUS SULFATE 325 MG TAB PO SCH (08:51)
[2022-03-22] MEDS: DOCUSATE SODIUM 100 MG CAP PO SCH ×2 (08:51→21:07)
[2022-03-22] MEDS: SIMETHICONE 80 MG CHEW PO SCH ×4 (08:52→21:07)
[2022-03-22] MEDS: PRENATAL VITAMIN 1 TAB PO SCH (08:52)
[2022-03-22] MEDS ORDERED: IRON SUCROSE 200 MG in 0.9 % SODIUM CHLORIDE 100 ML IV ONE (08:53)
[2022-03-22 09:17] LABS: Hematocrit (blood only) 24.7 % (34.1-44.9); Hemoglobin 8.5 g/dl (12.0-16.0)
--- NOTE | 2022-03-22 09:20 | Obstetrical Progress Note ---
Date of Service March 22, 2022 Assessment & Plan (1) labor in third trimester with delivery: (2) Normal course: Continue routine pp course, yan to be removed this AM anticipate d/c POD2-3 Subjective Ambulation: limited ambulation Voiding: yan catheter in place Passing Gas:: Yes Diet Tolerance:: regular diet Lochia:: Small Feeding Type:: breast feeding Current Pain Level(1-10): 2 Doing well, no complaints. Bonding well with baby in room Physical Exam Constitutional WD/WN, vitals as above Respiratory normal respiratory effort, lungs clear to auscultation Cardiovascular RRR, no murmur, no edema Gastrointestinal (Abdomen) normal bowel sounds, soft, nontender, no hepatosplenomegaly Bandage in place, clean, dry Results & Data ([facility]) Vital Signs (Past 12 Hours) Vital Signs Temp Pulse Resp BP Pulse Ox O2 Del Method 03/22/22 08:54 100 H 03/22/22 07:20 16 99 03/22/22 07:20 36.4 C L 67 16 101/66 99 Room Air 03/22/22 06:15 18 97 03/22/22 05:15 16 97 03/22/22 04:15 14 97 03/22/22 03:15 36.9 C 71 18 110/74 98 Room Air 03/22/22 03:15 18 98 03/22/22 02:15 16 97 03/22/22 01:15 18 98 03/22/22 00:15 16 97 03/21/22 23:15 18 96 03/21/22 23:15 37.6 C H 94 H 18 104/72 96 Room Air 03/21/22 23:00 18 98 03/21/22 22:00 18 99 Laboratory Results H/H 8.5/24.7%
[2022-03-22] MEDS ORDERED: ZOLPIDEM TARTRATE 5 MG TAB PO PRN (11:20)
[2022-03-22] MEDS ORDERED: diphenhydrAMINE 50 MG/ML VIAL IV PRN (11:20)
[2022-03-22] MEDS ORDERED: ONDANSETRON INJ 2 MG/ML 2 ML VIAL IV PRN (11:20)
[2022-03-22] MEDS ORDERED: PROMETHAZINE HCL 25 MG in SODIUM CHLORIDE 0.9% 50 ML IV PRN (11:20)
[2022-03-22] MEDS ORDERED: diphenhydrAMINE Capsule 25 MG CAP PO PRN (11:20)
[2022-03-22] MEDS: IBUPROFEN 600 MG TAB PO PRN ×3 (11:56→20:22)
[2022-03-22 12:19] LABS: Hematocrit (blood only) 24.1 % (34.1-44.9); Hemoglobin 8.1 g/dl (12.0-16.0)
[2022-03-22] MEDS: oxyCODONE/ACETAMINOPHEN 5mg/325mg TAB PO PRN ×2 (15:39→20:22)
[2022-03-22] MEDS ORDERED: bisacodyL 5 MG TABEC PO SCH (20:00)
[2022-03-23] MEDS: oxyCODONE/ACETAMINOPHEN 5mg/325mg TAB PO PRN ×6 (00:26→22:19)
[2022-03-23] MEDS: IBUPROFEN 600 MG TAB PO PRN ×6 (00:26→22:19)
[2022-03-23 06:22] LABS: Hematocrit (blood only) 22.9 % (34.1-44.9); Hemoglobin 7.7 g/dl (12.0-16.0)
[2022-03-23] MEDS: SIMETHICONE 80 MG CHEW PO SCH ×4 (07:59→20:59)
[2022-03-23] MEDS: PRENATAL VITAMIN 1 TAB PO SCH (07:59)
[2022-03-23] MEDS: DOCUSATE SODIUM 100 MG CAP PO SCH ×2 (08:00→20:59)
[2022-03-23] MEDS: FERROUS SULFATE 325 MG TAB PO SCH ×2 (08:00→21:03)
[2022-03-23] MEDS ORDERED: SODIUM CHLORIDE 0.9% 250 ML IV PRN (09:51)
[2022-03-23] MEDS ORDERED: ACETAMINOPHEN 325 MG TAB PO PRN (09:57)
--- NOTE | 2022-03-23 09:57 | Obstetrical Progress Note ---
Date of Service March 23, 2022 Assessment & Plan Admission and Anticipated Discharge Date Admission Date: March 21, 2022 Subjective Patient is seen and examined. She feels tired, complains of dizziness upon ambulation. Pain is under control with oral meds. Voiding without difficulty Tolerating regular diet with out N&V Flatus + BM neg Bleeding is minimal No fever/ chills/ CP/ SOB/ N&V/ Leg pain Breast feeding without problems Vital Signs Temp Pulse Resp BP Pulse Ox O2 Del Method 03/23/22 08:23 36.5 C 73 14 118/81 100 Room Air 03/23/22 03:35 36.6 C 72 18 110/74 99 Room Air 03/22/22 23:32 36.4 C L 83 18 120/84 98 Room Air 03/22/22 23:50 36.6 C 82 16 106/69 98 Room Air 03/22/22 20:30 Room Air 03/22/22 20:30 36.3 C L 98 H 16 122/78 99 Room Air 03/22/22 19:21 36.5 C 90 18 108/75 100 Room Air 03/22/22 15:20 36.7 C 89 16 109/69 99 Room Air 03/22/22 11:38 36.7 C 76 16 106/71 99 Room Air 03/22/22 11:38 16 99 Intake and Output 03/22/22 03/23/22 03/23/22 22:59 06:59 14:59 Output Total 400 / 1900 Balance -400 / -1900 Output: Urine 400 / 400 Lab Results 03/21/22 03/21/22 03/21/22 Range/Units 16:17 16:21 16:21 WBC 11.32 H (4.8-10.8) K/ul RBC 4.10 (3.93-5.22) M/uL Hgb 13.1 (12.0-16.0) g/dl Hct 37.6 (34.1-44.9) % MCV 91.7 (80.0-100.0) fL MCH 32.0 (25.0-34.0) pg MCHC 34.8 (32.0-36.0) g/dL RDW Std Deviation 46.0 (36.4-46.3) fL RDW Coeff of Steve 13.6 (11.5-14.5) % Plt Count 297 (130-400) K/uL MPV 12.4 H (9.4-12.3) fL Immature Gran % (Auto) 0.5 % Neut % (Auto) 75.9 % Lymph % (Auto) 15.7 % [place] % (Auto) 7.2 % Eos % (Auto) 0.5 % Baso % (Auto) 0.2 % Neut # (Auto) 8.58 H (1.4-6.5) K/uL Lymph # (Auto) 1.78 (1.2-3.4) K/uL [place] # (Auto) 0.82 (0.24-0.82) K/uL Eos # (Auto) 0.06 (0-0.50) K/uL Baso # (Auto) 0.02 (0-0.2) K/uL Immature Gran # (Auto) 0.06 H (0.00-0.02) K/uL Cord ABG pH Cord ABG pCO2 Cord ABG pO2 Cord ABG HCO3 Cord ABG Base Excess Cord ABG O2 Sat Cord VBG pH Cord VBG pCO2 Cord VBG pO2 Cord VBG HCO3 Cord VBG Base Excess Cord VBG O2 Sat Barometric Pressure Blood Gas Comments SARS-CoV-2, RNA, NAAT NEGATIVE (NEGATIVE) Blood Type A Positive Antibody Screen POSITIVE A Antibody Identification Anti-c Antibody ID Comment Crossmatch See Detail 03/21/22 03/21/22 03/22/22 Range/Units 17:26 17:26 06:03 WBC 11.18 H (4.8-10.8) K/ul RBC 2.50 L (3.93-5.22) M/uL Hgb 8.0 L D (12.0-16.0) g/dl Hct 23.4 L (34.1-44.9) % MCV 93.6 (80.0-100.0) fL MCH 32.0 (25.0-34.0) pg MCHC 34.2 (32.0-36.0) g/dL RDW Std Deviation 46.3 (36.4-46.3) fL RDW Coeff of Steve 13.7 (11.5-14.5) % Plt Count 169 (130-400) K/uL MPV 12.5 H (9.4-12.3) fL Immature Gran % (Auto) 0.4 % Neut % (Auto) 71.8 % Lymph % (Auto) 15.2 % [place] % (Auto) 12.0 % Eos % (Auto) 0.5 % Baso % (Auto) 0.1 % Neut # (Auto) 8.02 H (1.4-6.5) K/uL Lymph # (Auto) 1.70 (1.2-3.4) K/uL [place] # (Auto) 1.34 H (0.24-0.82) K/uL Eos # (Auto) 0.06 (0-0.50) K/uL Baso # (Auto) 0.01 (0-0.2) K/uL Immature Gran # (Auto) 0.05 H (0.00-0.02) K/uL Cord ABG pH Cancelled Cord ABG pCO2 Cancelled Cord ABG pO2 Cancelled Cord ABG HCO3 Cancelled Cord ABG Base Excess Cancelled Cord ABG O2 Sat Cancelled Cord VBG pH Cancelled Cord VBG pCO2 Cancelled Cord VBG pO2 Cancelled Cord VBG HCO3 Cancelled Cord VBG Base Excess Cancelled Cord VBG O2 Sat Cancelled Barometric Pressure Cancelled Cancelled Blood Gas Comments Cancelled Cancelled SARS-CoV-2, RNA, NAAT (NEGATIVE) Blood Type Antibody Screen Antibody Identification Antibody ID Comment Crossmatch 03/22/22 03/22/22 03/23/22 Range/Units 09:00 12:04 06:09 WBC (4.8-10.8) K/ul RBC (3.93-5.22) M/uL Hgb 8.5 L 8.1 L 7.7 L (12.0-16.0) g/dl Hct 24.7 L 24.1 L 22.9 L (34.1-44.9) % MCV (80.0-100.0) fL MCH (25.0-34.0) pg MCHC (32.0-36.0) g/dL RDW Std Deviation (36.4-46.3) fL RDW Coeff of Steve (11.5-14.5) % Plt Count (130-400) K/uL MPV (9.4-12.3) fL Immature Gran % (Auto) % Neut % (Auto) % Lymph % (Auto) % [place] % (Auto) % Eos % (Auto) % Baso % (Auto) % Neut # (Auto) (1.4-6.5) K/uL Lymph # (Auto) (1.2-3.4) K/uL [place] # (Auto) (0.24-0.82) K/uL Eos # (Auto) (0-0.50) K/uL Baso # (Auto) (0-0.2) K/uL Immature Gran # (Auto) (0.00-0.02) K/uL Cord ABG pH Cord ABG pCO2 Cord ABG pO2 Cord ABG HCO3 Cord ABG Base Excess Cord ABG O2 Sat Cord VBG pH Cord VBG pCO2 Cord VBG pO2 Cord VBG HCO3 Cord VBG Base Excess Cord VBG O2 Sat Barometric Pressure Blood Gas Comments SARS-CoV-2, RNA, NAAT (NEGATIVE) Blood Type Antibody Screen Antibody Identification Antibody ID Comment Crossmatch PE: General: Alert, orientedx3, NAD CVS: S1S2 RRR Lungs; CTAB Abd: soft, NT, ND, BS+, fundus firm, below Umbilicus Incision: Clean, dry, intact Perineum intact, Lochia rubra minimal Ext; NT, no edema AP: 26 yo s/p RC Section, pod# 2 VSS Afebrile, anemic and symptomatic s/p VB even before Csection Unable to take IV iron due to history of rash h/o anemia and has had blood transfusion without reaction She prefers blood transfusion Understands the risks and benefits and signed an informed consent. Continue routine postop care Encourage ambulation, PO intake All questions were answered Results & Data ([facility]) Vital Signs (Past 12 Hours) Vital Signs Temp Pulse Resp BP Pulse Ox O2 Del Method 03/23/22 08:23 36.5 C 73 14 118/81 100 Room Air 03/23/22 03:35 36.6 C 72 18 110/74 99 Room Air 03/22/22 23:32 36.4 C L 83 18 120/84 98 Room Air 03/22/22 23:50 36.6 C 82 16 106/69 98 Room Air
[2022-03-23] MEDS: LEVOTHYROXINE SODIUM 25 MCG TABLET PO SCH (10:15)
[2022-03-23] MEDS ORDERED: bisacodyL 10 MG SUPP PR PRN (18:28)
[2022-03-23 19:36] LABS: Basophils # (auto) 0.02 K/uL (0-0.2); Basophils % (auto) 0.3 %; Eosinophils # (auto) 0.21 K/uL (0-0.50); Eosinophils % (auto) 2.7 %; Hemoglobin 10.6 g/dl (12.0-16.0); Immature Granulocytes # (auto) 0.03 K/uL (0.00-0.02); Immature Granulocytes % (auto) 0.4 %; Lymphocytes # (auto) 1.93 K/uL (1.2-3.4); Lymphocytes % (auto) 24.7 %; Mean Corpuscular Hemoglobin 32.8 pg (25.0-34.0); Mean Corpuscular Hgb Conc 35.3 g/dL (32.0-36.0); Mean Corpuscular Volume 92.9 fL (80.0-100.0); Mean Platelet Volume 12.4 fL (9.4-12.3); Monocytes # (auto) 0.73 K/uL (0.24-0.82); Monocytes % (auto) 9.3 %; Neutrophils # (auto) 4.89 K/uL (1.4-6.5); Neutrophils % (auto) 62.6 %; Platelet Count 206 K/uL (130-400); RDW Coefficient of Variation 14.3 % (11.5-14.5); RDW Standard Deviation 48.3 fL (36.4-46.3); Red Blood Count 3.23 M/uL (3.93-5.22); White Blood Count 7.81 K/ul (4.8-10.8)
[2022-03-24] MEDS: oxyCODONE/ACETAMINOPHEN 5mg/325mg TAB PO PRN ×3 (02:15→13:33)
[2022-03-24] MEDS: IBUPROFEN 600 MG TAB PO PRN ×3 (02:15→13:34)
[2022-03-24] MEDS: SIMETHICONE 80 MG CHEW PO SCH ×2 (07:32→13:33)
[2022-03-24] MEDS: PRENATAL VITAMIN 1 TAB PO SCH (07:32)
[2022-03-24] MEDS: FERROUS SULFATE 325 MG TAB PO SCH (07:33)
[2022-03-24] MEDS: DOCUSATE SODIUM 100 MG CAP PO SCH (07:33)
[2022-03-24] MEDS: LEVOTHYROXINE SODIUM 25 MCG TABLET PO SCH (09:33)
--- NOTE | 2022-03-24 10:52 | Obstetrical Progress Note ---
Date of Service March 24, 2022 Subjective Ambulation: ambulating normally Voiding: no voiding problems Passing Gas:: Yes Diet Tolerance:: regular diet Lochia:: Small Feeding Type:: breast feeding Current Pain Level(1-10): 0 Physical Exam Constitutional WD/WN, vitals as above Gastrointestinal (Abdomen) normal bowel sounds, soft, nontender, no hepatosplenomegaly Inspection/Auscultation: abdomen normal to inspection incision c/d/i Musculoskeletal Extremities: extremities normal to inspection Skin no rashes, warm and dry Neurologic patellar DTR's 2+ bilat, sensation intact Results & Data ([facility]) Vital Signs (Past 12 Hours) Vital Signs Temp Pulse Resp BP Pulse Ox O2 Del Method 03/24/22 09:44 36.3 C L 77 18 129/84 99 03/24/22 07:40 36.3 C L 77 18 129/84 99 Room Air 03/24/22 03:31 36.5 C 63 20 121/71 98 Room Air 03/24/22 00:10 36.5 C 65 20 131/82 98 Room Air Laboratory Results Laboratory Results - last 72 hr 03/21/22 03/21/22 03/21/22 16:17 16:21 16:21 WBC 11.32 H RBC 4.10 Hgb 13.1 Hct 37.6 MCV 91.7 MCH 32.0 MCHC 34.8 RDW Std Deviation 46.0 RDW Coeff of Steve 13.6 Plt Count 297 MPV 12.4 H Immature Gran % (Auto) 0.5 Neut % (Auto) 75.9 Lymph % (Auto) 15.7 [place] % (Auto) 7.2 Eos % (Auto) 0.5 Baso % (Auto) 0.2 Neut # (Auto) 8.58 H Lymph # (Auto) 1.78 [place] # (Auto) 0.82 Eos # (Auto) 0.06 Baso # (Auto) 0.02 Immature Gran # (Auto) 0.06 H Cord ABG pH Cord ABG pCO2 Cord ABG pO2 Cord ABG HCO3 Cord ABG Base Excess Cord ABG O2 Sat Cord VBG pH Cord VBG pCO2 Cord VBG pO2 Cord VBG HCO3 Cord VBG Base Excess Cord VBG O2 Sat Barometric Pressure Blood Gas Comments SARS-CoV-2, RNA, NAAT NEGATIVE Blood Type A Positive Antibody Screen POSITIVE A Antibody Identification Anti-c Antibody ID Comment Crossmatch See Detail 03/21/22 03/21/22 03/22/22 17:26 17:26 06:03 WBC 11.18 H RBC 2.50 L Hgb 8.0 L D Hct 23.4 L MCV 93.6 MCH 32.0 MCHC 34.2 RDW Std Deviation 46.3 RDW Coeff of Steve 13.7 Plt Count 169 MPV 12.5 H Immature Gran % (Auto) 0.4 Neut % (Auto) 71.8 Lymph % (Auto) 15.2 [place] % (Auto) 12.0 Eos % (Auto) 0.5 Baso % (Auto) 0.1 Neut # (Auto) 8.02 H Lymph # (Auto) 1.70 [place] # (Auto) 1.34 H Eos # (Auto) 0.06 Baso # (Auto) 0.01 Immature Gran # (Auto) 0.05 H Cord ABG pH Cancelled Cord ABG pCO2 Cancelled Cord ABG pO2 Cancelled Cord ABG HCO3 Cancelled Cord ABG Base Excess Cancelled Cord ABG O2 Sat Cancelled Cord VBG pH Cancelled Cord VBG pCO2 Cancelled Cord VBG pO2 Cancelled Cord VBG HCO3 Cancelled Cord VBG Base Excess Cancelled Cord VBG O2 Sat Cancelled Barometric Pressure Cancelled Cancelled Blood Gas Comments Cancelled Cancelled SARS-CoV-2, RNA, NAAT Blood Type Antibody Screen Antibody Identification Antibody ID Comment Crossmatch 03/22/22 03/22/22 03/23/22 09:00 12:04 06:09 WBC RBC Hgb 8.5 L 8.1 L 7.7 L Hct 24.7 L 24.1 L 22.9 L MCV MCH MCHC RDW Std Deviation RDW Coeff of Steve Plt Count MPV Immature Gran % (Auto) Neut % (Auto) Lymph % (Auto) [place] % (Auto) Eos % (Auto) Baso % (Auto) Neut # (Auto) Lymph # (Auto) [place] # (Auto) Eos # (Auto) Baso # (Auto) Immature Gran # (Auto) Cord ABG pH Cord ABG pCO2 Cord ABG pO2 Cord ABG HCO3 Cord ABG Base Excess Cord ABG O2 Sat Cord VBG pH Cord VBG pCO2 Cord VBG pO2 Cord VBG HCO3 Cord VBG Base Excess Cord VBG O2 Sat Barometric Pressure Blood Gas Comments SARS-CoV-2, RNA, NAAT Blood Type Antibody Screen Antibody Identification Antibody ID Comment Crossmatch 03/23/22 19:18 WBC 7.81 RBC 3.23 L Hgb 10.6 L D Hct 30.0 L MCV 92.9 MCH 32.8 MCHC 35.3 RDW Std Deviation 48.3 H RDW Coeff of Steve 14.3 Plt Count 206 MPV 12.4 H Immature Gran % (Auto) 0.4 Neut % (Auto) 62.6 Lymph % (Auto) 24.7 [place] % (Auto) 9.3 Eos % (Auto) 2.7 Baso % (Auto) 0.3 Neut # (Auto) 4.89 Lymph # (Auto) 1.93 [place] # (Auto) 0.73 Eos # (Auto) 0.21 Baso # (Auto) 0.02 Immature Gran # (Auto) 0.03 H Cord ABG pH Cord ABG pCO2 Cord ABG pO2 Cord ABG HCO3 Cord ABG Base Excess Cord ABG O2 Sat Cord VBG pH Cord VBG pCO2 Cord VBG pO2 Cord VBG HCO3 Cord VBG Base Excess Cord VBG O2 Sat Barometric Pressure Blood Gas Comments SARS-CoV-2, RNA, NAAT Blood Type Antibody Screen Antibody Identification Antibody ID Comment Crossmatch
== END 2022-03-24 14:15 | disposition home or self-care (01) | DRG 785 ==
LOC: OPB 11:49 → 4S1 11:53 → 4E2 21:53
PROC: M.PPTLD (2022-03-21 16:55)
DX: Z30.2 Encounter for sterilization; O34.33 Maternal care for cervical incompetence, third trimester; Z3A.36 36 weeks gestation of pregnancy; Z37.0 Single live birth; O34.211 Maternal care for low transverse scar from previous cesarean delivery